=== PATIENT | female | born 1995 | race African-American/Black ===

== ENCOUNTER 2019-12-01 11:14 | Inpatient (IN) | payer MEDICAID, OTHER ==
[2019-12-01 12:33] LABS: BHCG - Serum Negative (NEGATIVE); Pregs Control Background? CLEAR/WHITE (CLR/WHITE); Pregs Control Bar Appear? YES (CONTROL BAR)
[2019-12-01] MEDS ORDERED: Ondansetron PF 4 MG/2 ML Vial ONE (13:05)
[2019-12-01 13:22] LABS: #Basophils 0.1 thou/uL (0.0-0.2); #Lymphocytes 2.6 thou/uL (1.20-3.40); #Monocytes 0.4 thou/uL (0.11-0.59); #Neutrophils 7.9 thou/uL (1.40-6.50); %Basophils 0.7 % (0.0-1.0); %Eosinophils 0.2 % (0.0-10.0); %Lymphocytes 23.9 % (21.0-51.0); %Monocytes 3.4 % (0.0-10.0); %Neutrophils 71.7 % (42.0-75.0); Hemoglobin 14.4 g/dL (12.0-16.0); Mean Corpuscular HGB CONC 34.2 g/dL (32.0-36.0); Mean Corpuscular Hemoglobin 32.8 pg (27.0-31.0); Mean Platelet Volume 8.1 fL (7.4-10.4); Platelet Count 373 thou/uL (130-400); RBC Distribution Width 11.1 % (11.5-14.5); Red Blood Cell (RBC) Count 4.39 mill/uL (4.20-5.40); White Blood Cell (WBC) Count 11.1 thou/uL (4.8-10.8)
[2019-12-01 13:39] LABS: ALT (SGPT) 11 U/L (8-55); AST (SGOT) 17 U/L (5-34); Albumin 4.7 g/dL (3.5-5.0); Alkaline Phosphatase 44 U/L (40-110); Anion Gap 15 mmol/L (10-20); BUN (Urea Nitrogen) 13 mg/dL (7.0-18.7); Bilirubin, Total 0.3 mg/dL (0.2-1.2); Calc. Creatinine Clearance 0 mL/min (70-130); Calcium 9.9 mg/dL (7.8-10.44); Carbon Dioxide 31 mmol/L (22-29); Chloride 94 mmol/L (98-107); Estimated GFR-MDRD Greater than 90; Globulin 2.4 g/dL (2.4-3.5); Glucose 96 mg/dL (70-105); Protein, Total 7.1 g/dL (6.0-8.3); Sodium 137 mmol/L (136-145)
[2019-12-01 13:39] LABS: Acetaminophen Less than 6.0 mcg/mL (10.0-30.0); Alcohol Less than 10 mg/dL (Less than 10); Lipase 93 U/L (8-78); Salicylate Less than 8.0 mg/dL (15.0-30.0)
[2019-12-01 13:53] LABS: Potassium 2.6 mmol/L (3.5-5.1)
[2019-12-01] MEDS ORDERED: Haloperidol Lactate 5 MG/ML VIAL ONE ×2 (13:57→14:29)
[2019-12-01] MEDS ORDERED: diphenhydrAMINE 50 MG/ML VIAL ONE (13:57)
[2019-12-01] MEDS ORDERED: Metoclopramide HCl 10 MG/2 ML VIAL ONE (13:57)
[2019-12-01] MEDS ORDERED: Potassium Chloride 20 MEQ TAB ONE (13:57)
[2019-12-01 14:02] LABS: HIV (1/2) Antibody/Antigen Non-Reactive (NonReactive); HIV 1/2 INDEX 0.12 S/CO (<1.00)
--- NOTE | 2019-12-01 15:13 | PDOC.HHP ---
Hospitalist HPI - History of Present Illness Nausea and Vomiting History of Present Illness: PCP: Dr. Alex The patient is a 24-year-old female with a past medical history significant for cyclical nausea and vomiting and depression that presents to the emergency department for the above complaint. The patient reports having a decreased appetite for the past 1 to 2 months. She reports an approximate 20 to 30 pound weight loss over this time. She reports that she has lost weight and does not eat much because "I am depressed". She saw a unknown specialist in [place] on 11/11, she was diagnosed with cyclical nausea and vomiting. At some point, she underwent an EGD, which she says was unremarkable. She saw [facility] this week and was diagnosed with depression, however, she believes that they are working on another diagnoses as well. She reports that she smokes marijuana, which gives her an increased appetite, makes her gain weight and generally makes her feel better. She last used marijuana about 1 week ago. She also reports that she recently moved in with her mother due to her recent struggles. She denies any SI/HI. She denies any abdominal pain, hematemesis, hematochezia or melena. She denies any shortness of breath, cough, or wheezing. She reports some musculoskeletal chest pain, pointing to her xiphoid bone. She denies any heart palpitations, lower extremity swelling or lightheadedness. She denies any fever or recent illness. ED Course: VITAL SIGNS WedDec 01, 2019 11:16 BERTHA Og Cheryl BP: 84/55, MAP: 78, Pulse: 98, Resp: 18, Temp: 98.9 (Oral), Pain: 8, O2 sat: 100, Time: 12/01/2019 11:16. VITAL SIGNS WedDec 01, 2019 13:15 BERTHA Willett Cory BP: 110/61, MAP: 77, Pulse: 63, Resp: 17, O2 sat: 100 on (Room Air), Time: 12/01/2019 13:15. VITAL SIGNS WedDec 01, 2019 14:23 BERTHA Adair Nicole BP: 112/86, Pulse: 67, Resp: 16, Pain: 8, O2 sat: 100 on (Room Air), Time: 12/01/2019 14:23. Medication administration: Haldol injection 5 mg IV Push Given 14:40 12/01/2019 potassium chloride oral 40 mEq Oral Given 14:28 12/01/2019 diphenhydrAMINE injection 25 mg IV Push Given 14:23 12/01/2019 Reglan injection 10 mg IV Push Given 14:22 12/01/2019 sodium chloride 0.9 % intravenous 1 L IV Fluid Infusion Given 14:21 12/01/2019 Zofran intravenous 8mg mg IV Push Given 13:35 12/01/2019 sodium chloride 0.9 % intravenous 1 L IV Fluid Infusion Given 13:34 12/01/2019 Hospitalist ROS - Review of Systems All other systems reviewed; all pertinent +/- noted in HPI/Subj - Medication Medications: None. 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 Gastrointestinal: reports: no pertinent history Heme/Onc: reports: no pertinent history Hepatobiliary: reports: no pertinent history Psych: reports: Depression, Other (Currently being evaluated by [facility] for other possible diagnoses.) Musculoskeletal: reports: no pertinent history Rheumatologic: reports: no pertinent history Infectious Disease: reports: no pertinent history ENT: reports: no pertinent history Renal/: reports: no pertinent history Endocrine: reports: no pertinent history Dermatology: reports: no pertinent history - Past Surgical History Past Surgical History: reports: no pertinent history - Family History Family History: reports: Other (Contributory for depression) - Social History Smoking Status: Current every day smoker (Quarter pack per day x5 years) Tobacco Type: cigarettes Alcohol: reports: None Drugs: reports: marijuana Occupation: Currently lives with her mother Activity level: independent ambulation - Exam General Appearance: NAD, awake alert. negative: ill appearing General - other findings: Resting comfortably with eyes closed Eye: PERRL, anicteric sclera ENT: normocephalic atraumatic, dry oral mucosa Neck: supple, symmetric Heart: RRR, no murmur, no gallops, no rubs, normal peripheral pulses Respiratory: CTAB, no wheezes, no rales, no ronchi, normal chest expansion Gastrointestinal: soft, non-tender, normal bowel sounds, no guarding, no rigidity Extremities: no cyanosis, no edema Skin: no rashes Neurological: cranial nerve grossly intact, no focal deficits Musculoskeletal: normal tone, normal strength Musculoskeletal - other findings: xiphoid is mild to mod TTP, reproducible Psychiatric: normal affect, A&O x 3 Hospitalist Results - Labs Result Diagrams: 12/01/19 13:00 12/01/19 12:03 Lab results: WBC 11.1 thou/uL (4.8-10.8) H 12/01/19 13:00 Hgb 14.4 g/dL (12.0-16.0) 12/01/19 13:00 Hct 42.2 % (36.0-47.0) 12/01/19 13:00 MCV 96.0 fL (78.0-98.0) 12/01/19 13:00 Plt Count 373 thou/uL (130-400) 12/01/19 13:00 Neutrophils % 71.7 % (42.0-75.0) 12/01/19 13:00 Sodium 137 mmol/L (136-145) 12/01/19 12:03 Potassium 2.6 mmol/L (3.5-5.1) L* 12/01/19 12:03 Chloride 94 mmol/L (98-107) L 12/01/19 12:03 Carbon Dioxide 31 mmol/L (22-29) H 12/01/19 12:03 BUN 13 mg/dL (7.0-18.7) 12/01/19 12:03 Creatinine 0.71 mg/dL (0.6-1.1) 12/01/19 12:03 Glucose 96 mg/dL (70-105) 12/01/19 12:03 Calcium 9.9 mg/dL (7.8-10.44) 12/01/19 12:03 Total Bilirubin 0.3 mg/dL (0.2-1.2) 12/01/19 12:03 AST 17 U/L (5-34) 12/01/19 12:03 ALT 11 U/L (8-55) 12/01/19 12:03 Alkaline Phosphatase 44 U/L (40-110) 12/01/19 12:03 Serum Total Protein 7.1 g/dL (6.0-8.3) 12/01/19 12:03 Albumin 4.7 g/dL (3.5-5.0) 12/01/19 12:03 Lipase 93 U/L (8-78) H 12/01/19 13:00 - EKG Interpretation EKG: EKG normal sinus rhythm with sinus arrhythmia LAE pulse 65 no STEMI Hospitalist H&P A/P - Problem (1) Hypokalemia Code(s): E87.6 - HYPOKALEMIA Status: Acute (2) Nausea and vomiting Code(s): R11.2 - NAUSEA WITH VOMITING, UNSPECIFIED Status: Acute (3) Low TSH level Code(s): R79.89 - OTHER SPECIFIED ABNORMAL FINDINGS OF BLOOD CHEMISTRY Status: Acute (4) Depression Code(s): F32.9 - MAJOR DEPRESSIVE DISORDER, SINGLE EPISODE, UNSPECIFIED Status: Chronic (5) Tobacco abuse Code(s): Z72.0 - TOBACCO USE Status: Chronic (6) Marijuana abuse Code(s): F12.10 - CANNABIS ABUSE, UNCOMPLICATED Status: Chronic - Plan Plan: with PMH cyclical N/V, new diagnosis of depression presents for nausea and vomiting and weight loss. Admit to telemetry floor, inpatient status. Expected length of stay greater than 2 midnights. Presented afebrile, hypotensive, tachycardic, NL RR and SPO2. EKG NSR/SA, no ST elevation. K 2.6, TSH 0.2000, WBC 11.1, UA unremarkable, hCG negative #Hypokalemia Likely due to nausea and vomiting. Presented K 2.6. Given 40 mEq oral in ED. Give 40 mEq IVP x1. Check magnesium level. Recheck levels in a.m. #Nausea and vomiting Resolved upon examination. Recent diagnosis of cyclical N/V. Recent EGD unremarkable. Add scopolamine patch. Zofran PRN. #Low TSH level Presented 0.2000. Check free T4, free T3. At this time, no concern for thyroid storm. #Depression Denies SI/HI. Newly diagnosed this week by [facility]. Reports possible other diagnoses pending. No medication prescriptions at this time due to recent diagnosis. #Tobacco abuse Smokes quarter pack per day x5 years. Unwilling to quit. Counseled tobacco cessation. #Marijuana abuse Last use 1 week ago. Reports helps with her depression, increases her appetite and energy, helps her gain weight. SCDs for DVT prophylaxis. Protonix for GI prophylaxis. Full code. Discussed the case with Dr. Amezquita.
[2019-12-01] MEDS ORDERED: Acetaminophen 325 MG TAB PO PRN (15:47)
[2019-12-01] MEDS ORDERED: Calcium Carbonate 500 MG ChewTAB PO PRN (15:47)
[2019-12-01] MEDS ORDERED: Ondansetron PF 4 MG/2 ML Vial IVP PRN (15:47)
[2019-12-01] MEDS ORDERED: Senokot S 8.6-50 MG TAB PO PRN (15:47)
[2019-12-01] MEDS ORDERED: Ondansetron ODT 4 MG TAB PO PRN (15:47)
[2019-12-01 15:59] LABS: Bacteria/HPF None Seen HPF (None Seen); Bilirubin Negative (Negative); Blood, Urine Negative (Negative); Clarity Turbid (Clear); Glucose, Urine (Dipstick) Normal (Negative); Ketone, Urine 10 mg/dL (Negative); Leukocyte 500 Leu/uL (Negative); Nitrite Negative (Negative); Protein, Urine (Dipstick) 20 mg/dL (Neg-Trace); Specific Gravity, Urine 1.015 (1.002-1.036); Squamous Epithelial 0-3 HPF (0-3); WBC/HPF 21-50 HPF (0-3)
[2019-12-01 16:14] LABS: Amphetamine Not Detected (NotDetected); Barbiturates Screen Not Detected (NotDetected); Benzodiazepine Screen Not Detected (NotDetected); Cocaine Metabolite Screen Not Detected (NotDetected); Medtox Control Line Valid? VALID (VALID); Medtox Reader # READER 4; Methadone Not Detected (NotDetected); Methamphetamine Not Detected (NotDetected); Opiate Screen Not Detected (NotDetected); Oxycodone Screen Not Detected (NotDetected); Phencyclidine (PCP) Not Detected (NotDetected); THC/Cannabinoid Screen Detected (NotDetected); Tricyclic Screen Not Detected (NotDetected)
[2019-12-01] MEDS ORDERED: FLU VACC QS2020-21(6MOS UP)/PF 60 MCG/0.5 ML SYRINGE IM ONE (17:45)
[2019-12-01] MEDS ORDERED: Morphine 4 MG/ML VIAL SLOW IVP PRN (18:00)
[2019-12-01] MEDS ORDERED: cefTRIAXone\\ROCEPHIN 1 GM in Sodium Chloride 0.9% 100 ML IVPB SCH (18:00)
[2019-12-01] MEDS ORDERED: Scopolamine 1.5 mg/72 hour Patch TD SCH (18:00)
[2019-12-01] MEDS ORDERED: Potassium Chloride 40 MEQ in Sodium Chloride 0.9% 250 ML 250 ML IVPB SCH (18:00)
[2019-12-01] MEDS: Sodium Chloride 0.9% 1,000 ML IV SCH (18:12)
[2019-12-01] MEDS ORDERED: Magnesium 2 GM/50 ML 2 GM in Premix Bag 1 BAG IVPB SCH (20:00)
[2019-12-02] MEDS: Sodium Chloride 0.9% 1,000 ML IV SCH ×2 (04:13→07:56)
[2019-12-02] MEDS ORDERED: Fentanyl 100 MCG/2 ML VIAL SLOW IVP SCH (06:45)
[2019-12-02 06:48] LABS: Anion Gap 10 mmol/L (10-20); BUN (Urea Nitrogen) 8 mg/dL (7.0-18.7); Calc. Creatinine Clearance 93 mL/min (70-130); Carbon Dioxide 24 mmol/L (22-29); Chloride 106 mmol/L (98-107); Estimated GFR-MDRD Greater than 90; Glucose 95 mg/dL (70-105); Potassium 3.4 mmol/L (3.5-5.1); Sodium 137 mmol/L (136-145)
[2019-12-02 07:02] LABS: #Basophils 0.1 thou/uL (0.0-0.2); #Eosinphils 0.1 thou/uL (0.0-0.7); #Lymphocytes 4.3 thou/uL (1.20-3.40); #Monocytes 0.3 thou/uL (0.11-0.59); #Neutrophils 4.4 thou/uL (1.40-6.50); %Basophils 0.7 % (0.0-1.0); %Eosinophils 1.1 % (0.0-10.0); %Lymphocytes 46.6 % (21.0-51.0); %Monocytes 3.4 % (0.0-10.0); %Neutrophils 48.2 % (42.0-75.0); Hemoglobin 11.6 g/dL (12.0-16.0); Mean Corpuscular HGB CONC 34.4 g/dL (32.0-36.0); Mean Corpuscular Hemoglobin 33.2 pg (27.0-31.0); Mean Corpuscular Volume 96.4 fL (78.0-98.0); Mean Platelet Volume 8.1 fL (7.4-10.4); Platelet Count 303 thou/uL (130-400); RBC Distribution Width 11.2 % (11.5-14.5); White Blood Cell (WBC) Count 9.1 thou/uL (4.8-10.8)
[2019-12-02 07:04] LABS: Free T4 (Free Thyroxine) 1.38 ng/dL (0.70-1.48)
[2019-12-02] MEDS ORDERED: Pantoprazole 40 MG VIAL IVP SCH (09:00)
[2019-12-02] MEDS ORDERED: Nicotine 21 MG PATCH TD SCH (12:00)
[2019-12-02 12:25] VITALS: BMI 18.3
--- NOTE | 2019-12-02 15:21 | DIS ---
DATE OF ADMISSION: 12/01/2019 DATE OF DISCHARGE: 12/02/2019 PRIMARY CARE PROVIDER: At [facility]. DISCHARGE DIAGNOSES: 1. Cyclical nausea and vomiting. 2. Hypokalemia. 3. Histories of depression. 4. Tobacco abuse. 5. Histories of marijuana use. CONSULTATIONS: None. PROCEDURE PERFORMED: None. LABORATORY DATA AND IMAGING STUDY: WBC 9.1, hemoglobin 11.6, hematocrit 33.7, and platelets 303. Sodium is 137, potassium 3.4, carbon dioxide 24, chloride is 106, BUN 10, creatinine 0.65. TSH level 0.2, free T3 2.36, free T4 1.36, folate 3.3, vitamin B12. UA is positive for leukocyte esterase. Urine tox screen, positive for cannabinoids. HIV screen was nonreactive. HISTORY OF PRESENT ILLNESS AND BRIEF HOSPITAL COURSE: The patient is a pleasant 20 years old female who carried the diagnosis of cyclical nausea and vomiting and depression, who presented to the ED with complaint of nausea and vomiting. The patient apparently underwent an extensive workup including EGD, all came back none revealing. She was diagnosed with cyclical nausea and vomiting. At any rate, she was found to have multiple electrolyte abnormalities including hypokalemia with potassium of 2.6 on admission. Given her symptomatology, she was subsequently admitted to Hospitalist Service for IV fluid hydration and correct her underlying metabolic derangement due to her nausea and vomiting. She was hydrated well. Her diet was restarted. She has tolerated well and keep things down. She denies any abdominal pain. She also found to have low TSH level; however, her free T3 and free T4 were normal. She likely has an underlying subclinical hypothyroidism. We would recommend her to follow up with her PCP in 4 to 6 weeks to recheck her TSH level. She is otherwise asymptomatic from it. She also found to have urinary tract infection, was treated apparently with Rocephin. At this point, the patient stated that her symptoms completely resolved. She is tolerating diet, and she requests to be discharged home. It should be noted that the patient admitted for inpatient with anticipation of stay longer than 2 midnights; however, her symptom responded well to the medical therapy faster than anticipated. The patient will be discharged to home with percy Fields. She also discharged home with 5 more days of Macrobid for her urinary tract infection. She was advised to follow up with her PCP in 1 to 2 weeks. Return to the ED if her symptoms recurs or worsen. DISPOSITION: The patient is stable to discharge home. ACTIVITY: As tolerated. DIET: Regular. FOLLOWUP CARE: The patient to follow up with her PCP in 1 to 2 weeks. She will need to repeat her thyroid function test in about 4 to 6 weeks. PHYSICAL EXAMINATION: VITAL SIGNS: Temperature is 98.4, respiratory rate 15, pulse is 70, blood pressure 110/66. GENERAL: The patient is a thin, not in acute distress. HEENT: Normocephalic, atraumatic. Mucous membranes moist. NECK: Supple. No lymphadenopathy. No JVD. CARDIOVASCULAR: Regular rate and rhythm. S1, S2 noted. No murmur. PULMONOLOGY: Clear to auscultation bilaterally. ABDOMEN: Soft, nontender, nondistended. Positive bowel sounds. MUSCULOSKELETAL: No joint pain or tenderness. No lower extremity edema. SKIN: Intact. NEUROLOGIC: Cranial nerves 2 through 12 grossly intact. No focal weakness. PSYCHIATRIC: The patient is alert and oriented x3 with normal affect. The patient denies any suicidal or homicidal ideation. DISCHARGE MEDICATIONS: 1. Zofran 4 mg q.6 p.r.n. for nausea. 2. Macrobid 100 mg b.i.d. for 5 days. Thank you for allowing us to participate in this patient's care. Discharge time spent, 35 minutes. Job ID: [id number] MTDD
[2019-12-02 15:25] LABS: SARS-CoV-2 MS2 Positive; SARS-CoV-2 N Gene Negative; SARS-CoV-2 S Gene Negative; SARS-CoV-2 by NAA Not Detected (NotDetected); SARS-CoV-2 orf1ab Negative
[2019-12-02 16:18] VITALS: BP 108/68; TEMP 98.2
--- NOTE | 2019-12-05 03:39 | PQF ---
Dear : Aron Barksdale Date 12/05/19 Please exercise your independent, professional judgment in responding to the clarification form. Clinical indicators are provided on the bottom of this form for your review Can you please further clarify the nutritional status of the patient? Please check appropriate box(es): [ X ] Protein Calorie Malnutrition: [ ] Mild [ X ] Moderate [ ] Severe [ ] Other Malnutrition (please specify) [ ] Underweight without malnutrition [ ] Cachexia [ ] Other diagnosis [ ] Unable to determine Physician Signature: Date/Time: For continuity of documentation, please document condition throughout progress notes and discharge summary. Thank You. To be completed by CDI/Coding staff for physician review: Present Clinical Indicators - Signs / Symptoms / Labs Results and Location in Medical Record [ x ] BMI 17.6 Nutritional assessment 12/01 [ x ] Noted moderate temporalis muscle, moderate buccal, and orbital fat pad wasting Nutritional assessment 12/01 [ x ] Suggestive of severe malnutrition in the context of chronic illness Nutritional assessment 12/01 [ x ] Poor appetite Nutritional assessment 12/01 [ x ] 34+ pounds weight loss Nutritional assessment 12/01 [ x ] History of cyclical nausea and vomiting H and P pg.1 [ x ] Presents for nausea and vomiting and weight loss H and P pg.5 Present Risk Factors Results and Location in Medical Record [ x ] Depression H and P pg.1 [ x ] Smoker H and P pg. 2 [ x ] Marijuana abuse H and P pg.4 [ x ] hypokalemia H and P pg.5 [ x ] Subclinical hypothyroidism DS pg.2 [ x ] UTI DS pg.2 Present Treatments Results and Location in Medical Record [ x ] Dietary consult Nutritional assessment 12/01 [ x ] Nutritional supplements Nutritional assessment 12/01 [ x ] IV Fluids MAR [ x ] Monitor weight change Nutritional assessment 12/01 [ x ] Monitor Total protein intake Nutritional assessment 12/01 CDS/Biomass Plant Technician Signature: Emmett Vázquez Phone #: ext [phone] Date 12/05/19 Moderate Malnutrition (in acute illness) ? Energy Intake: <75% of estimated energy requirement for > 7 days ? Weight Loss: 1-2%/1 week; 5%/ 1 month; 7.5%/3 months ? Other: mild body fat loss; mild muscle mass loss; mild fluid accumulation; Severe Malnutrition (in acute illness) ? Energy Intake: ? 50% of estimated energy requirement for ? 5 days ? Weight Loss: >2%/1 week; >5%/1 month; >7.5%/3 months ? Other: moderate body fat loss; moderate muscle mass loss; moderate- severe fluid accumulation; measurably reduced tool pusher strength Moderate Malnutrition (in chronic illness) ? Energy Intake: <75% of estimated energy requirement for ?1 month ? Weight Loss: 5%/1 month; 7.5%/3 months; 10%/6 months; 20%/1 year ? Other: mild body fat loss; mild muscle mass loss; mild fluid accumulation Severe Malnutrition (in chronic illness) ? Energy Intake: ?75% of estimated energy requirement for ?1 month ? Weight Loss: >5%/1 month; >7.5%/3 months; >10%/6 months; >20%/1 year ? Other: severe body fat loss; severe muscle mass loss; severe fluid accumulation; measurably reduced tool pusher strength This is a permanent part of the Medical Record MTDD
== END 2019-12-02 16:25 | disposition home or self-care (01) | DRG 394 ==
LOC: ERS 11:14 → 2NO 16:54
PROVIDERS: ADMIT Internal Medicine; ATTEND Internal Medicine
DX: R11.15 Cyclical vomiting syndrome unrelated to migraine (principal); N39.0 Urinary tract infection, site not specified; Z68.1 Body mass index [BMI] 19.9 or less, adult; E44.0 Moderate protein-calorie malnutrition; E87.6 Hypokalemia; E78.5 Hyperlipidemia, unspecified; F17.210 Nicotine dependence, cigarettes, uncomplicated; F12.10 Cannabis abuse, uncomplicated; F31.9 Bipolar disorder, unspecified; F41.9 Anxiety disorder, unspecified; E86.0 Dehydration; E02 Subclinical iodine-deficiency hypothyroidism; Z20.828 Contact with and (suspected) exposure to other viral communicable diseases
CPT/HCPCS: 36415; 36416; 80048; 80053; 80306; 80307; 81001; 82607; 82746; 83690; 83735; 84439; 84443; 84481; 84703; 85025; 87086; 87389; 87635; 93005; 96365; 96375; C9113; J0696; J1200; J1630; J2270; J2405; J2765; J3010; J3475; J3480; J3490; J7050; U0003

== ENCOUNTER 2020-04-01 11:44 | Inpatient (IN) | payer MEDICAID, SELFPAY ==
[2020-04-01 13:46] LABS: #Basophils 0.1 thou/uL (0.0-0.2); #Lymphocytes 4.2 thou/uL (1.20-3.40); #Monocytes 0.8 thou/uL (0.11-0.59); #Neutrophils 14.2 thou/uL (1.40-6.50); %Basophils 0.5 % (0.0-1.0); %Lymphocytes 21.9 % (21.0-51.0); %Monocytes 4.1 % (0.0-10.0); %Neutrophils 73.4 % (42.0-75.0); Hemoglobin 15.9 g/dL (12.0-16.0); Mean Corpuscular HGB CONC 34.3 g/dL (32.0-36.0); Mean Corpuscular Hemoglobin 33.7 pg (27.0-31.0); Mean Corpuscular Volume 98.3 fL (78.0-98.0); Mean Platelet Volume 7.8 fL (7.4-10.4); Platelet Count 429 thou/uL (130-400); RBC Distribution Width 11.4 % (11.5-14.5); Red Blood Cell (RBC) Count 4.72 mill/uL (4.20-5.40); White Blood Cell (WBC) Count 19.3 thou/uL (4.8-10.8)
[2020-04-01 13:54] LABS: BHCG - Serum Negative (NEGATIVE); Pregs Control Background? CLEAR/WHITE (CLR/WHITE); Pregs Control Bar Appear? YES (CONTROL BAR)
[2020-04-01 14:06] LABS: ALT (SGPT) 14 U/L (8-55); AST (SGOT) 18 U/L (5-34); Albumin 5.5 g/dL (3.5-5.0); Alkaline Phosphatase 62 U/L (40-110); Anion Gap 23 mmol/L (10-20); BUN (Urea Nitrogen) 27 mg/dL (7.0-18.7); Bilirubin, Total 0.3 mg/dL (0.2-1.2); Calc. Creatinine Clearance 0 mL/min (70-130); Calcium 10.9 mg/dL (7.8-10.44); Carbon Dioxide 21 mmol/L (22-29); Chloride 90 mmol/L (98-107); Globulin 3.5 g/dL (2.4-3.5); Glucose 112 mg/dL (70-105); Lipase 39 U/L (8-78); Potassium 3.2 mmol/L (3.5-5.1); Sodium 131 mmol/L (136-145)
[2020-04-01] MEDS ORDERED: Ondansetron PF 4 MG/2 ML Vial ONE (15:02)
[2020-04-01] MEDS ORDERED: Morphine 4 MG/ML VIAL ONE (15:02)
[2020-04-01] MEDS ORDERED: Acetaminophen 650 MG Suppository PR PRN (15:40)
--- NOTE | 2020-04-01 16:03 | PDOC.HHP ---
Hospitalist HPI Intractable N/V History of Present Illness: Ms. Contreras is a 24-year-old female with past medical history of bipolar disorder, chronic intractable nausea vomiting, weight loss and failure to thrive who presents emergency room for intractable nausea and vomiting. Patient reports that over the past year she has had chronic nausea vomiting and has been unable to keep anything down. Last year patient weighed 135 pounds, she is currently about 80 pounds. She reports she has an appetite but is unable to keep any food down. She endorses global pain and generalized weakness. She denies chest pain, shortness of breath or abdominal pain. Does state that she has had periods of numbness at the ends of her fingertips that are transient as well as muscle cramps. She reports that a similar event happened in 2013 where she lost a significant amount of weight and was unable to tolerate anything p.o. She said that this is when she is going through a stressful time in her life, but that a few months afterwards this improved and she had no problems until 1 year ago. Patient does smoke marijuana and possibility of cannabis hyperemesis syndrome has been brought to patient. She has attempted to quit and has not found relief in her symptoms. She was sent in from Dr. Brito's office for electrolyte abnormalities and an acute kidney injury. She reports that over the past week she has been unable to keep anything down. She takes daily vitamins and daily potassium pills. She was [facility] in [place], however did not follow-up with this appointment. She has been admitted multiple times in the past for intractable nausea and vomiting. She has had a thorough work-up including an EGD which was negative. Records show that in 2013 she did have a gastroparesis study done which was negative. Patient cachectic on exam with lanugo and signs of severe malnutrition. Emergency room initial vital signs 139/116, 112, 18, 97.5 BUN/CR 27/2.29, sodium 131, potassium 3.2, calcium 10.9. Beta hCG negative. Lipase 69. H&H 15.9/46.3. WBC 19.3, platelets 429. Of note patient had a recent CT abdomen pelvis on February 26 which showed constipation and no acute process. Patient is hospital service for treatment of her LUIS and severe malnutrition. Allergies/Adverse Reactions: Allergy/AdvReac Type Severity Reaction Status Date / Time No Known Drug Allergies Allergy Verified 09/15/13 02:04 Home Medications: Medication Instructions Recorded Confirmed Type Ondansetron HCl [Zofran] 4 mg PO Q6HR PRN #30 tab 12/02/19 04/01/20 Rx Gabapentin [Neurontin] 100 mg PO TID 04/01/20 04/01/20 History Multivitamin [One-A-Day Essential] 1 tab PO DAILY 04/01/20 04/01/20 History Omeprazole 40 mg PO DAILY 04/01/20 04/01/20 History Potassium Gluconate [Potassium] 99 mg PO DAILY 04/01/20 04/01/20 History Promethazine [Phenergan] 25 mg PO TID PRN 04/01/20 04/01/20 History Ziprasidone HCl 20 mg PO BID 04/01/20 04/01/20 History Past History: PMHx: Cyclic nausea/vomiting syndrome PSHx: Tonsillectomy FHx: Denies family history of metabolic disorders, celiac disease, IBS IBD or cancers Social: Lives at home with family. Endorses marijuana use and tobacco use, denies alcohol use. Hospitalist HPI ROS Constitutional: reports: weakness, malaise. denies: fever, chills, sweats, other Eyes: denies: pain, vision change, conjunctivae inflammation, eyelid inflammation, redness, other ENT: denies: ear pain, ear discharge, nose pain, nose discharge, nose congestion, mouth pain, mouth swelling, throat pain, throat swelling, other Respiratory: denies: cough, dry, shortness of breath, hemoptysis, SOB with excertion, pleuritic pain, sputum, wheezing, other Cardiovascular: denies: chest pain, palpitations, orthopnea, paroxysmal noc. dyspnea, edema, light headedness, other Gastrointestinal: reports: nausea, vomiting. denies: abdominal pain, diarrhea, constipation, melena, hematochezia, other Genitourinary: denies: dysuria, frequency, incontinence, hematuria, retention, other Musculoskeletal: denies: neck pain, shoulder pain, arm pain, back pain, hand pain, leg pain, foot pain, other Skin: denies: rash, lesions, shannan, bruising, other Neurological: denies: weakness, numbness, incoordination, change in speech, confusion, seizures, other Hospitalist Exam General Appearance: NAD, awake alert, ill appearing General - other findings: Cachectic with lanugo Eye: PERRL, anicteric sclera ENT: normocephalic atraumatic, no oropharyngeal lesions, moist mucosa Neck: supple, symmetric, no JVD, no thyromegaly, no lymphadenopathy, no carotid bruit Heart: RRR, no murmur, no gallops, no rubs, normal peripheral pulses Respiratory: CTAB, no wheezes, no rales, no ronchi, normal chest expansion, no tachypnea, normal percussion Gastrointestinal: soft, non-tender, non-distended, normal bowel sounds, no palpable masses, no hepatomegaly, no splenomegaly, no bruit Extremities: no cyanosis, no clubbing, no edema Skin: tenting Neurological: cranial nerve grossly intact, normal sensation to touch, no weakness, no focal deficits, no new deficit Musculoskeletal: normal tone, normal strength, generalized weakness, diffuse muscle atrophy Psychiatric: normal affect, normal behavior, A&O x 3 Hospitalist Results Result Diagrams: 04/02/20 09:28 04/02/20 08:29 Lab results: Laboratory Last Values WBC 19.3 thou/uL (4.8-10.8) H 04/01/20 13:33 RBC 4.72 mill/uL (4.20-5.40) 04/01/20 13:33 Hgb 15.9 g/dL (12.0-16.0) 04/01/20 13:33 Hct 46.3 % (36.0-47.0) 04/01/20 13:33 MCV 98.3 fL (78.0-98.0) H 04/01/20 13:33 MCH 33.7 pg (27.0-31.0) H 04/01/20 13:33 MCHC 34.3 g/dL (32.0-36.0) 04/01/20 13:33 RDW 11.4 % (11.5-14.5) L 04/01/20 13:33 Plt Count 429 thou/uL (130-400) H 04/01/20 13:33 MPV 7.8 fL (7.4-10.4) 04/01/20 13:33 Neutrophils % 73.4 % (42.0-75.0) 04/01/20 13:33 Lymphocytes % 21.9 % (21.0-51.0) 04/01/20 13:33 Monocytes % 4.1 % (0.0-10.0) 04/01/20 13:33 Eosinophils % 0.0 % (0.0-10.0) 04/01/20 13:33 Basophils % 0.5 % (0.0-1.0) 04/01/20 13:33 Neutrophils # 14.2 thou/uL (1.40-6.50) H 04/01/20 13:33 Lymphocytes # 4.2 thou/uL (1.20-3.40) H 04/01/20 13:33 Monocytes # 0.8 thou/uL (0.11-0.59) H 04/01/20 13:33 Eosinophils # 0.0 thou/uL (0.0-0.7) 04/01/20 13:33 Basophils # 0.1 thou/uL (0.0-0.2) 04/01/20 13:33 Sodium 131 mmol/L (136-145) L 04/01/20 13:33 Potassium 3.2 mmol/L (3.5-5.1) L 04/01/20 13:33 Chloride 90 mmol/L (98-107) L 04/01/20 13:33 Carbon Dioxide 21 mmol/L (22-29) L 04/01/20 13:33 Anion Gap 23 mmol/L (10-20) H 04/01/20 13:33 BUN 27 mg/dL (7.0-18.7) H 04/01/20 13:33 Creatinine 2.29 mg/dL (0.6-1.1) H 04/01/20 13:33 Estimated GFR (MDRD) 31 04/01/20 13:33 Glucose 112 mg/dL (70-105) H 04/01/20 13:33 Calcium 10.9 mg/dL (7.8-10.44) H 04/01/20 13:33 Total Bilirubin 0.3 mg/dL (0.2-1.2) 04/01/20 13:33 AST 18 U/L (5-34) 04/01/20 13:33 ALT 14 U/L (8-55) 04/01/20 13:33 Alkaline Phosphatase 62 U/L (40-110) 04/01/20 13:33 Serum Total Protein 9.0 g/dL (6.0-8.3) H 04/01/20 13:33 Albumin 5.5 g/dL (3.5-5.0) H 04/01/20 13:33 Globulin 3.5 g/dL (2.4-3.5) 04/01/20 13:33 Albumin/Globulin Ratio 1.6 g/dL (1.2-2.2) 04/01/20 13:33 Lipase 39 U/L (8-78) 04/01/20 13:33 Serum , Qual Negative (NEGATIVE) 04/01/20 13:33 Hospitalist H&P A/P Plan: 24-year-old female with past medical history of bipolar disorder presents with chronic nausea and vomiting, significant 60 pound weight loss in the past year presents with intractable nausea, severe malnutrition, acute kidney injury, several electrolyte abnormalities and overall failure to thrive picture. Intractable nausea and vomiting Patient with intractable nausea and vomiting. Unable to tolerate nothing p.o. was sent in from Dr. Brito's office for LUIS noted on labs. This is a chronic problem for the patient and she has been following with GI and was supposed to see specialist in [place], however never made of follow-up appointment. There is question of marijuana hyperemesis syndrome, however patient reports that she has tried quitting and this is not helped her symptoms. Impressed upon patient the need to quit marijuana to exclude this diagnosis. Patient received Zofran and metoclopramide in emergency room. She has improvement in her nausea symptoms but unable to keep down liquids or solids. Suspect patient may have metabolic disorder given chronicity of symptoms and severity of patient's malnutrition. Will work-up patient for other less obvious causes of intractable nausea and vomiting. Plan IV Zofran Scopolamine patch GI consult Acute kidney injury Patient with LUIS BUNs/CR 27/2.29. Likely secondary to hypovolemia secondary to GI losses. Will start IV fluids and consult nephrology given patient's young age. Plan Trend kidney function IV fluids Avoid nephrotoxic agents when possible Renal dosing as appropriate Nephrology consult Hypercalcemia Patient hypercalcemic with calcium 10.6. Patient's protein level is actually high likely 2/2 dehydration. Given patient's elevated elevated calcium level, will send for SPEP/UPEP especially given patient's global pain and significant weight loss. We will also check parathyroid hormone and vitamin D levels. Plan IV fluids to bring calcium down SPEP/UPEP, vitamin D Hypokalemia Hypokalemic to 3.2. Secondary to GI losses. Will replete and continue to monitor Hyponatremia Sodium 131. Likely hypovolemic hyponatremia secondary to dehydration and GI losses. Will check urine sodium, urine osm, serum osm. Anion gap metabolic acidosis Patient with anion gap metabolic acidosis likely secondary to starvation ketosis. Will administer IV fluids continue to monitor. Failure to thrive Patient with failure to thrive picture. Had significant weight loss in the past year and has cachexia on exam with lanugo. Patient has tried multiple nutrition supplements in the past and is unable to keep on any weight or keep any food down. Suspect patient may have underlying metabolic disorder. Will obtain nutrition consult. Plan Nutrition consult recommendations appreciated Anxiety and depression History of anxiety and depression. We will continue home medications. Patient reports she is stable, and feels as though her medical problems are the main cause of her anxiety and depression and that she did not have issues with anxiety or depression prior to developing these medical issues. DVT prophylaxisSCDs Full code Case discussed with attending physician, Dr. Aguilar
[2020-04-01 16:50] LABS: Hemoglobin A1c 5.3 % (4.0-6.0)
[2020-04-01 17:06] LABS: Syphilis Antibody Nonreactive (Nonreactive); Syphilis Antibody Index 0.03 S/CO (<1.00 Non-Reactive)
[2020-04-01 17:08] LABS: HIV (1/2) Antibody/Antigen Non-Reactive (NonReactive); HIV 1/2 INDEX 0.09 S/CO (<1.00)
[2020-04-01 17:24] LABS: Bacteria/HPF None Seen HPF (None Seen); Bilirubin Negative (Negative); Blood, Urine Negative (Negative); Clarity Turbid (Clear); Glucose, Urine (Dipstick) Normal (Negative); Ketone, Urine 10 mg/dL (Negative); Leukocyte 75 Leu/uL (Negative); Nitrite Negative (Negative); Protein, Urine (Dipstick) 100 mg/dL (Neg-Trace); RBC/HPF 0-3 HPF (0-3); Specific Gravity, Urine 1.026 (1.002-1.036); pH, Urine 5.5 (5.0-9.0)
[2020-04-01] MEDS: Potassium Chloride 20 MEQ in Lactated Ringer's 1,000 ML IV SCH (18:20)
[2020-04-01] MEDS: Scopolamine 1.5 mg/72 hour Patch TD SCH (18:21)
[2020-04-01 19:00] VITALS: BMI 15.0
[2020-04-01 20:04] LABS: Anion Gap 19 mmol/L (10-20); BUN (Urea Nitrogen) 26 mg/dL (7.0-18.7); Calc. Creatinine Clearance 38 mL/min (70-130); Calcium 9.9 mg/dL (7.8-10.44); Carbon Dioxide 25 mmol/L (22-29); Chloride 94 mmol/L (98-107); Glucose 93 mg/dL (70-105); Potassium 3.6 mmol/L (3.5-5.1); Sodium 134 mmol/L (136-145)
[2020-04-01] MEDS: cefTRIAXone\\ROCEPHIN 1 GM in Sodium Chloride 0.9% 100 ML IVPB SCH (20:27)
[2020-04-01] MEDS ORDERED: Nicotine 7 MG PATCH TOP SCH (20:30)
[2020-04-01] MEDS: Nicotine 7 MG PATCH TOP SCH (20:31)
[2020-04-01] MEDS: Gabapentin 100 MG CAP PO SCH ×2 (20:31→21:02)
[2020-04-01] MEDS: Ziprasidone 20 MG CAP PO SCH ×2 (20:37→21:03)
[2020-04-01] MEDS ORDERED: Lidocaine 2% Viscous Solution 10 ML, Aluminum & Magnesium Hydroxide 30 ML SSW SCH (23:00)
[2020-04-01] MEDS: Acetaminophen 325 MG TAB PO PRN (23:11)
[2020-04-01 23:17] LABS: Amphetamine Not Detected (NotDetected); Barbiturates Screen Not Detected (NotDetected); Benzodiazepine Screen Not Detected (NotDetected); Cocaine Metabolite Screen Not Detected (NotDetected); Medtox Control Line Valid? VALID (VALID); Medtox Reader # READER 4; Methadone Not Detected (NotDetected); Methamphetamine Not Detected (NotDetected); Opiate Screen Detected (NotDetected); Oxycodone Screen Not Detected (NotDetected); Phencyclidine (PCP) Not Detected (NotDetected); Potassium, Urine 47.4 mmol/L; Sodium, Urine Less than 20 mmol/L (Not Available); THC/Cannabinoid Screen Detected (NotDetected); Tricyclic Screen Not Detected (NotDetected)
[2020-04-02] MEDS: Ondansetron ODT 4 MG TAB PO PRN ×2 (00:40→05:41)
[2020-04-02] MEDS ORDERED: Morphine 4 MG/ML VIAL SLOW IVP SCH (01:30)
[2020-04-02] MEDS: Potassium Chloride 20 MEQ in Lactated Ringer's 1,000 ML IV SCH ×2 (01:31→09:20)
[2020-04-02 01:49] LABS: #Basophils 0.1 thou/uL (0.0-0.2); #Eosinphils 0.1 thou/uL (0.0-0.7); #Lymphocytes 4.9 thou/uL (1.20-3.40); #Monocytes 0.6 thou/uL (0.11-0.59); #Neutrophils 9.5 thou/uL (1.40-6.50); %Basophils 0.6 % (0.0-1.0); %Eosinophils 0.5 % (0.0-10.0); %Lymphocytes 32.2 % (21.0-51.0); %Monocytes 3.7 % (0.0-10.0); %Neutrophils 62.9 % (42.0-75.0); Hemoglobin 14.2 g/dL (12.0-16.0); Mean Corpuscular HGB CONC 34.9 g/dL (32.0-36.0); Mean Corpuscular Hemoglobin 33.5 pg (27.0-31.0); Mean Corpuscular Volume 96.1 fL (78.0-98.0); Platelet Count 390 thou/uL (130-400); RBC Distribution Width 11.3 % (11.5-14.5); Red Blood Cell (RBC) Count 4.22 mill/uL (4.20-5.40)
[2020-04-02 02:06] LABS: Lactic Acid 2.2 mmol/L (0.5-2.2)
[2020-04-02 02:12] LABS: ALT (SGPT) 11 U/L (8-55); AST (SGOT) 15 U/L (5-34); Albumin 4.9 g/dL (3.5-5.0); Alkaline Phosphatase 50 U/L (40-110); Anion Gap 17 mmol/L (10-20); BUN (Urea Nitrogen) 26 mg/dL (7.0-18.7); Bilirubin, Total 0.3 mg/dL (0.2-1.2); Calc. Creatinine Clearance 43 mL/min (70-130); Calcium 9.9 mg/dL (7.8-10.44); Carbon Dioxide 24 mmol/L (22-29); Chloride 96 mmol/L (98-107); Glucose 143 mg/dL (70-105); Lipase 31 U/L (8-78); Protein, Total 7.9 g/dL (6.0-8.3); Sodium 134 mmol/L (136-145)
[2020-04-02] MEDS: Potassium Chloride 20 MEQ in Premix Bag 1 BAG IVPB SCH ×2 (03:04→10:49)
[2020-04-02] MEDS ORDERED: Melatonin 3 MG TAB PO SCH (04:45)
[2020-04-02] MEDS ORDERED: Calcium Carbonate 500 MG ChewTAB PO PRN (06:17)
--- NOTE | 2020-04-02 07:44 | CT ---
PRELIMINARY REPORT/[facility]/EMERGENCY AFTER HOURS PROCEDURE: EXAM: CT Abdomen and Pelvis Without Intravenous Contrast CLINICAL HISTORY: F25, SEVERE ABDOMEN PAIN. TECHNIQUE: Axial computed tomography images of the abdomen and pelvis without intravenous contrast. CONTRAST: None. COMPARISON: None provided. FINDINGS: LUNG BASES: No basilar airspace consolidation or pleural effusion. LIVER: Unremarkable. GALLBLADDER AND BILE DUCTS: Unremarkable. No calcified stone. No ductal dilation. PANCREAS: Unremarkable. SPLEEN: Unremarkable. ADRENAL GLANDS: Unremarkable. KIDNEYS, URETERS, AND BLADDER: Multiple nonobstructing right renal calculi. STOMACH AND BOWEL: Moderate volume of formed stool throughout the colon raising the possibility of so me degree of constipation. APPENDIX: No CT evidence for appendicitis. PERITONEUM: No free fluid. No free air. REPRODUCTIVE: Unremarkable as visualized. VASCULATURE: No aortic aneurysm. ABDOMINAL WALL AND SOFT TISSUES: Unremarkable. BONES: No fracture or suspicious osseous abnormality. IMPRESSION: 1. Multiple nonobstructing right renal calculi. 2. Moderate volume of formed stool throughout the colon raising the possibility of some degree of con stipation. ELECTRONICALLY SIGNED BY: John Jerry MD Apr 02, 2020 2:24:17 AM [employer] FINAL REPORT ABDOMEN CT WITHOUT CONTRAST PELVIC CT WITHOUT CONTRAST: HISTORY: Abdominal pain, severe. COMPARISON: None. FINDINGS: Abdomen CT: Lung bases:Clear. Heart size: Normal heart size. No significant pericardial fluid. Aorta: Normal caliber. No periaortic fat stranding. Solid organs: Limited evaluation by the absence of IV contrast. Grossly no solid organ abnormality. Lymph nodes: No gastrohepatic, retrocrural or periportal lymphadenopathy. Gallbladder: Grossly unremarkable. Mesentery: No mass, lymphadenopathy, free air or free fluid. Kidneys: Punctate nonobstructing 1-2 mm calculi in the right renal pelvis. Bilaterally no obstructive uropathy. Alimentary canal: Limited evaluation by the lack of oral contrast. Moderate fecal material. Correlate for constipation. No evidence of a small bowel obstruction. Limited evaluation of the ileocecal junction. Partially visualized normal caliber appendix. CT PELVIS: No mass, adenopathy, free air or free fluid. Grossly unremarkable reproductive organs Urinary bladder: Unremarkable. Osseous structures: No lytic or blastic lesions IMPRESSION: 1. This report is in agreement with initial report by [facility]. 2. Moderate fecal material. Correlate for constipation. 3. Nonobstructing intrarenal calculi in the right renal pelvis. Transcribed Date/Time: 04/02/2020 8:12 AM
[2020-04-02] MEDS: Ziprasidone 20 MG CAP PO SCH ×2 (07:54→20:41)
[2020-04-02] MEDS: Gabapentin 100 MG CAP PO SCH ×3 (07:54→20:40)
[2020-04-02] MEDS ORDERED: Bisacodyl 5 MG TAB PO PRN (08:08)
[2020-04-02] MEDS ORDERED: Thiamine HCl 200 MG/2 ML VIAL SLOW IVP SCH (09:00)
[2020-04-02 09:11] LABS: Anion Gap 16 mmol/L (10-20); BUN (Urea Nitrogen) 24 mg/dL (7.0-18.7); Calc. Creatinine Clearance 52 mL/min (70-130); Calcium 10.1 mg/dL (7.8-10.44); Carbon Dioxide 23 mmol/L (22-29); Chloride 94 mmol/L (98-107); Glucose 100 mg/dL (70-105); Potassium 3.3 mmol/L (3.5-5.1); Sodium 130 mmol/L (136-145)
--- NOTE | 2020-04-02 09:11 | PDOC.HOSPP ---
- Subjective Encounter Date: 04/02/20 Encounter Time: 09:10 Subjective: Overnight patient with acute severe abdominal pain. Night team ordered a CT scan, which was showed no acute findings, but moderate stool burden. Patient continues to report abdominal pain this morning. Reports that her n/v has continued. Denies chest pain, SOB. Patient reports chronic constipation and that she will frequently have to manually disimpact her bowels. She has been doing this over the past year. Chart and medications reviewed. - Objective Vital Signs & Weight: Vital Signs (12 hours) Temp Pulse Resp BP Pulse Ox 04/02/20 07:38 98.6 F 81 20 133/60 99 04/02/20 04:00 97.6 F 96 18 144/100 H 95 04/02/20 00:50 98.3 F 97 18 156/110 H 98 Weight Weight 85 lb Result Diagrams: 04/02/20 09:28 04/02/20 08:29 Hospitalist ROS - Review of Systems Constitutional: reports: weakness, malaise. denies: fever, chills, sweats, other Eyes: denies: pain, vision change, conjunctivae inflammation, eyelid inflammation, redness, other ENT: denies: ear pain, ear discharge, nose pain, nose discharge, nose congestion, mouth pain, mouth swelling, throat pain, throat swelling, other Respiratory: denies: cough, dry, shortness of breath, hemoptysis, SOB with excertion, pleuritic pain, sputum, wheezing, other Cardiovascular: denies: chest pain, palpitations, orthopnea, paroxysmal noc. dyspnea, edema, light headedness, other Gastrointestinal: reports: nausea, vomiting, abdominal pain, constipation. denies: diarrhea, melena, hematochezia, other Genitourinary: denies: dysuria, frequency, incontinence, hematuria, retention, other Musculoskeletal: denies: neck pain, shoulder pain, arm pain, back pain, hand pain, leg pain, foot pain, other Skin: denies: rash, lesions, shannan, bruising, other Neurological: denies: weakness, numbness, incoordination, change in speech, c onfusion, seizures, other - Medication Medications: Active Medications Generic Name Dose Route Start Last Admin Trade Name Freq PRN Reason Stop Dose Admin Acetaminophen 650 mg 04/01/20 15:40 04/01/20 23:11 Acetaminophen 325 Mg Tab PO 650 mg Q4H PRN Administration Headache/Fever/Mild Pain (1-3) Gabapentin 100 mg 04/01/20 21:00 04/02/20 07:54 Gabapentin 100 Mg Cap PO 100 mg TID KIRSTIN Administration Ceftriaxone Sodium 1 gm/ 100 mls @ 200 mls/hr 04/01/20 20:00 04/01/20 20:27 Sodium Chloride IVPB 100 mls Q24HR KIRSTIN Administration Nicotine 7 mg 04/01/20 20:00 04/01/20 20:31 Nicotine 7 Mg Patch TOP 7 mg Q24HR KIRSTIN Administration Ondansetron HCl 4 mg 04/01/20 15:40 04/02/20 05:41 Ondansetron Odt 4 Mg Tab PO 4 mg Q6H PRN Administration Nausea/Vomiting Scopolamine 1.5 mg 04/01/20 17:00 04/01/20 18:21 Scopolamine 1.5 Mg/72 Hour Patch TD 1.5 mg Q3D KIRSTIN Administration Ziprasidone 20 mg 04/01/20 21:00 04/02/20 07:54 Ziprasidone 20 Mg Cap PO 20 mg BID KIRSTIN Administration Hospitalist Exam Vitals: Vital Signs (12 hours) Temp Pulse Resp BP Pulse Ox 04/02/20 07:38 98.6 F 81 20 133/60 99 04/02/20 04:00 97.6 F 96 18 144/100 H 95 04/02/20 00:50 98.3 F 97 18 156/110 H 98 Weight Weight 85 lb General Appearance: NAD, awake alert General - other findings: Cachectic Eye: PERRL, anicteric sclera ENT: normocephalic atraumatic, no oropharyngeal lesions, moist mucosa Neck: supple, symmetric, no JVD, no thyromegaly, no lymphadenopathy, no carotid bruit Heart: RRR, no murmur, no gallops, no rubs, normal peripheral pulses Respiratory: CTAB, no wheezes, no rales, no ronchi, normal chest expansion, no tachypnea, normal percussion Gastrointestinal: soft, normal bowel sounds, tender to palpation Extremities: no cyanosis, no clubbing, no edema Skin: normal turgor, no lesions, no rashes Neurological: cranial nerve grossly intact, normal sensation to touch, no weakness, no focal deficits, no new deficit Musculoskeletal: normal tone, normal strength, no muscle wasting Psychiatric: normal affect, normal behavior, A&O x 3 Hosp A/P - Plan 24-year-old female with past medical history of bipolar disorder presents with chronic nausea and vomiting, significant 60 pound weight loss in the past year presents with intractable nausea, severe malnutrition, acute kidney injury, several electrolyte abnormalities and overall failure to thrive picture. Intractable nausea and vomiting Patient with intractable nausea and vomiting. Unable to tolerate nothing p.o. was sent in from GI office for LUIS noted on labs. This is a chronic problem for the patient and she has been following with GI and was supposed to see specialist in [place], however never made of follow-up appointment. There is question of marijuana hyperemesis syndrome, however patient reports that she has tried quitting and this is not helped her symptoms. Impressed upon patient the need to quit marijuana to exclude this diagnosis. Patient received Zofran and metoclopramide in emergency room. She has improvement in her nausea symptoms but unable to keep down liquids or solids. Suspect patient may have metabolic disorder given chronicity of symptoms and severity of patient's malnutrition. Will work-up patient for other less obvious causes of intractable nausea and vomiting. Plan IV Zofran, scopolamin patch -Gastric emptying study in 2013 negative GI consult Abdominal pain Patient with abdominal pain overnight. CT abdomen with no acute findings and only moderate amount of stool. RUQUS wnl. Lipase wnl. Given patient's chronic abdominal pain, intractable n/v suspect celiac disease or other metabolic disorder. Patient's abdomen is non-peritoneal on exam but TTP. Plan -CT, RUQUS negative -Gluten free diet, celiac testing, 24 hr PBG -Serial abdominal exams -GI consult Acute kidney injury Patient with LUIS BUNs/CR 27/2.29. Likely secondary to hypovolemia secondary to GI losses. Will start IV fluids and consult nephrology given patient's young age. Plan Trend kidney function IV fluids Avoid nephrotoxic agents when possible Renal dosing as appropriate Nephrology consult Hypercalcemia Patient hypercalcemic with calcium 10.6. Patient's protein level is actually high likely 2/2 dehydration. Given patient's elevated elevated calcium level, will send for SPEP/UPEP especially given patient's global pain and significant weight loss. We will also check parathyroid hormone and vitamin D levels. Plan IV fluids to bring calcium down SPEP/UPEP, vitamin D Hypokalemia Hypokalemic to 3.2. Secondary to GI losses. Will replete and continue to monitor Hyponatremia Sodium 131. Likely hypovolemic hyponatremia secondary to dehydration and GI losses. Urine osm/serum osm consistent with hypovolemic hyponatremia. Improved with IVF. Anion gap metabolic acidosis Patient with anion gap metabolic acidosis likely secondary to starvation ketosis. Will administer IV fluids continue to monitor. Failure to thrive Patient with failure to thrive picture. Had significant weight loss in the past year and has cachexia on exam with lanugo. Patient has tried multiple nutrition supplements in the past and is unable to keep on any weight or keep any food down. Suspect patient may have underlying metabolic disorder. Will obtain n utrition consult. Plan -Plan as above Nutrition consult recommendations appreciated Anxiety and depression History of anxiety and depression. We will continue home medications. Patient reports she is stable, and feels as though her medical problems are the main cause of her anxiety and depression and that she did not have issues with anxiety or depression prior to developing these medical issues. Plan -Continue home medications DVT prophylaxisSCDs Full code Case discussed with attending physician, Dr. Aguilar
[2020-04-02] MEDS: Morphine 2 MG/ML VIAL SLOW IVP PRN ×3 (09:14→20:53)
[2020-04-02] MEDS: Ondansetron PF 4 MG/2 ML Vial IVP PRN (09:38)
[2020-04-02] MEDS: D5 NS w/ 40 mEq KCl 1,000 ML IV SCH ×2 (09:44→18:35)
[2020-04-02 09:47] LABS: Hemoglobin 13.2 g/dL (12.0-16.0); Mean Corpuscular HGB CONC 33.8 g/dL (32.0-36.0); Mean Corpuscular Hemoglobin 32.3 pg (27.0-31.0); Mean Corpuscular Volume 95.5 fL (78.0-98.0); Mean Platelet Volume 8.1 fL (7.4-10.4); Platelet Count 401 thou/uL (130-400); RBC Distribution Width 11.3 % (11.5-14.5); Red Blood Cell (RBC) Count 4.07 mill/uL (4.20-5.40); White Blood Cell (WBC) Count 12.9 thou/uL (4.8-10.8)
[2020-04-02] MEDS ORDERED: Morphine 2 MG/ML VIAL SLOW IVP SCH (10:15)
--- NOTE | 2020-04-02 10:36 | ULT ---
EXAM: US Gallbladder RUQ CLINICAL HISTORY: Abdominal pain. COMPARISON: 08/12/2013 FINDINGS: Pancreas: The head and proximal pancreatic body have a normal echotexture. The remainder the pancrea s is obscured by bowel gas Liver:Hepatic parenchyma has a normal echotexture. No hepatic masses or intrahepatic biliary dilatati on. Right hepatic lobe: 13.7 cm Gallbladder: No sonographic evidence of cholelithiasis, gallbladder wall thickening or pericholecysti c fluid. Serrano's sign:Negative Portal Vein: Patent. Appropriate directional flow Bile ducts: 0.26 cm common bile duct diameter Right kidney: No hydronephrosis. Right kidney measures 9.8 x 4.2 x 5.1 cm in length. IMPRESSION: Unremarkable exam.
[2020-04-02 12:10] LABS: Band 1 % (5-11); Lymphocytes 38 % (21-51); MDiff Complete? YES; Monocytes 3 % (0-10); Neutrophil 57 % (42-75); Platelet Morphology Comment Appears Adequate; RBC Morphology Normal
[2020-04-02] MEDS: Nicotine 7 MG PATCH TOP SCH (18:31)
[2020-04-02] MEDS: cefTRIAXone\\ROCEPHIN 1 GM in Sodium Chloride 0.9% 100 ML IVPB SCH (20:42)
[2020-04-02] MEDS ORDERED: FLU VACC QS2020-21(6MOS UP)/PF 60 MCG/0.5 ML SYRINGE IM ONE (21:00)
[2020-04-03] MEDS: D5 NS w/ 40 mEq KCl 1,000 ML IV SCH ×4 (01:00→20:55)
[2020-04-03] MEDS: Morphine 2 MG/ML VIAL SLOW IVP PRN ×3 (02:55→13:25)
[2020-04-03 05:58] LABS: #Basophils 0.1 thou/uL (0.0-0.2); #Eosinphils 0.1 thou/uL (0.0-0.7); #Lymphocytes 4.2 thou/uL (1.20-3.40); #Monocytes 0.4 thou/uL (0.11-0.59); #Neutrophils 4.7 thou/uL (1.40-6.50); %Basophils 1.1 % (0.0-1.0); %Eosinophils 0.6 % (0.0-10.0); %Lymphocytes 44.7 % (21.0-51.0); %Monocytes 4.1 % (0.0-10.0); %Neutrophils 49.5 % (42.0-75.0); Hemoglobin 11.4 g/dL (12.0-16.0); Mean Corpuscular HGB CONC 32.4 g/dL (32.0-36.0); Mean Corpuscular Hemoglobin 31.4 pg (27.0-31.0); Mean Corpuscular Volume 96.7 fL (78.0-98.0); Mean Platelet Volume 7.6 fL (7.4-10.4); Platelet Count 330 thou/uL (130-400); RBC Distribution Width 11.3 % (11.5-14.5); Red Blood Cell (RBC) Count 3.62 mill/uL (4.20-5.40); White Blood Cell (WBC) Count 9.4 thou/uL (4.8-10.8)
[2020-04-03 06:16] LABS: CRP (Inflammatory) Less than 0.50 mg/dL (= or < 0.5); Phosphorus 2.9 mg/dL (2.3-4.7)
[2020-04-03 07:14] LABS: SARS-CoV-2 NAA Rapid Test Not Detected (NotDetected)
--- NOTE | 2020-04-03 07:31 | CON ---
DATE OF CONSULTATION: 04/02/[address] Sousa for intractable nausea, vomiting. HISTORY OF PRESENT ILLNESS: Ms. Contreras is a 24-year-old female, who is admitted to the hospital for failure to thrive, we had seen her back in 2013 in hospital with similar symptoms of six weeks of recurrent nausea and vomiting. Actually, she had been seen by Dr. Boyd at that time for 6 weeks of nausea, vomiting of unclear etiology. I had seen before that with negative upper and lower endoscopy. Negative evaluation for celiac biopsies and serology. She had normal cortisol and ESR at that time. Recently, she was referred back to the office. She was DQ2 positive and thought maybe she had celiac. She smokes marijuana on daily basis. We recommended she stop that. She is very cachectic. She denied any hematemesis, melena, hematochezia. Placed on omeprazole and Phenergan at that time. 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 She followed up again on the and noted that she had lost another 8 pounds and stopped smoking marijuana. Ultimate decision was made to send her to the hospital. She seemed very dehydrated, cachectic. She has had previous HIV testing, which was negative at [place] [facility] she reports she weighed 135 pounds and weighs 85 now. She reports after she eats she just does not feel she would hold food down, it will come back up. When asked directly about bulimia, she states that sometimes she does make herself vomit. She has chronic constipation. She had been in the hospital in November of last year with diagnosis of cyclical vomiting syndrome, normal thyroid evaluation, normal labs. She had slightly low TSH at that time, a normal T3 and T4. She was ultimately discharge with Zofran and Macrobid for possible UTI. On February 26, she was seen in emergency room, where she had a CAT scan of the abdomen and pelvis, no acute processes noted, definite lack of intraabdominal fat, this was a noncontrast study, but no signs of obstruction were seen. This evaluation, she had a CT scan today without IV contrast, showed multiple nonobstructing right renal calculi, moderate amount of stool throughout the colon with some constipation, and ultrasound showed no gallstones. PAST MEDICAL HISTORY: History of intermittent vomiting issues in the past, bipolar disorder, which was treated at [facility]. PAST SURGICAL HISTORY: Tonsillectomy, past endoscopy as noted above. FAMILY HISTORY: Liver disease in a grandparent. No celiac, IBS, or cancers. SOCIAL HISTORY: Lives at home with family. She is using marijuana daily. Smokes daily. Denies alcohol use. She states she has not used marijuana in 8 days. MEDICATIONS: At home, 1. Phenergan. 2. Potassium. 3. Zofran. 4. Metronidazole. 5. Neurontin. 6. Geodon. Medications here, 1. Geodon 20 mg b.i.d. 2. Scopolamine. 3. Normal saline with 20 of K at 125. 4. Zofran. 5. Nicotine patch. 6. Morphine p.r.n. 7. Gabapentin. 8. Folic acid. 9. Rocephin. 10. Tylenol. PHYSICAL EXAMINATION: GENERAL: She is a cachectic female, in bed, muscle wasting. VITAL SIGNS: Temperature max 97, pulse 68, blood pressure 109/71. NECK: She has no adenopathy in the neck. LUNGS: Clear. HEART: Regular without clicks or murmurs. ABDOMEN: Soft, nontender, scaphoid. There is no rebound. There is no guarding. There is no palpable hepatosplenomegaly. EXTREMITIES: No clubbing, cyanosis, or edema. There is no adenopathy. Decreased muscle mass noted. LABORATORY DATA: White count 12, hemoglobin 13, platelets 401, 57% neutrophils, 38% lymphocytes. Sodium 130, potassium 3.3, chloride 94, BUN 24, creatinine 1.01, calcium 10, bilirubin 0.3, AST and ALT are 15 and 11, alkaline phosphatase 50, protein 7.9, albumin 4.9, lipase 31, CK was 120 on 12/05/2019. TSH was 0.9 in 11/2019. test negative on 04/01. In 2000, remote history of evaluation for cortisol this admission was normal, 26. Folate 5.5, B12 722. Previous evaluation for serum metanephrines negative, normal. Urine shows squames and white blood cells. UDS positive for cannabinoids, negative for everything else. Plasma alcohol less than 10 in 11/2019. IgA 76 in 2013. Celiac studies negative then. HIV negative, 04/01/20. She has no COVID test performed. ASSESSMENT: A 24-year-old female with cachexia, weighing 85 pounds, slightly elevated platelet count, history of refractory vomiting, this may be related to cyclical vomiting. I have more concerns that she may be anorexic. She has had significant evaluation in the past possible she could have celiac disease, negative serologic values in the past based on her low IgA levels, but she has had negative biopsy in the past, but she is on a gluten-free diet. Previous evaluations have not shown signs of inflammatory bowel disease. She is on Geodon, which can cause significant constipation and does have bipolar disorder, which I think likely may be anorexia nervosa. RECOMMENDATIONS: She needs a COVID test and EGD tomorrow with small bowel biopsies. I will perform that as soon as the COVID test is back. Job ID: [id number]
--- NOTE | 2020-04-03 08:48 | PDOC.HOSPP ---
- Subjective Encounter Date: 04/03/20 Encounter Time: 08:47 Subjective: complaining of whole body pain x 6 mos. hungry with intractable nausea and vomiting - Objective Vital Signs & Weight: Vital Signs (12 hours) Temp Pulse Resp BP Pulse Ox 04/03/20 08:00 98.0 F 62 16 112/53 L 99 04/03/20 05:53 98.2 F 108 H 22 H 115/74 100 04/03/20 00:00 98.4 F 94 16 102/58 L 98 Weight Admit Weight 85 lb Weight 85 lb I&O: 04/02/20 04/03/20 04/04/20 06:59 06:59 06:59 Intake Total 120 Balance 120 Result Diagrams: 04/03/20 05:42 04/02/20 08:29 Hospitalist ROS - Medication Medications: Active Medications Generic Name Dose Route Start Last Admin Trade Name Freq PRN Reason Stop Dose Admin Acetaminophen 650 mg 04/01/20 15:40 04/01/20 23:11 Acetaminophen 325 Mg Tab PO 650 mg Q4H PRN Administration Headache/Fever/Mild Pain (1-3) Bisacodyl 5 mg 04/02/20 08:08 04/02/20 12:50 Bisacodyl 5 Mg Tab PO 5 mg DAILYPRN PRN Administration Constipation Gabapentin 100 mg 04/01/20 21:00 04/02/20 20:40 Gabapentin 100 Mg Cap PO 100 mg TID KIRSTIN Administration Ceftriaxone Sodium 1 gm/ 100 mls @ 200 mls/hr 04/01/20 20:00 04/02/20 20:42 Sodium Chloride IVPB 100 mls Q24HR KIRSTIN Administration Potassium Chloride/Dextrose/Sod Cl 1,000 mls @ 125 mls/hr 04/02/20 09:00 04/03/20 01:00 D5 Ns W/ 40 Meq Kcl IV 1,000 mls .Q8H KIRSTIN Administration Morphine Sulfate 2 mg 04/02/20 08:57 04/03/20 08:41 Morphine 2 Mg/Ml Vial SLOW IVP 2 mg Q4H PRN Administration Pain Nicotine 7 mg 04/01/20 20:00 04/02/20 18:31 Nicotine 7 Mg Patch TOP 7 mg Q24HR KIRSTIN Administration Ondansetron HCl 4 mg 04/01/20 15:40 04/02/20 05:41 Ondansetron Odt 4 Mg Tab PO 4 mg Q6H PRN Administration Nausea/Vomiting Ondansetron HCl 4 mg 04/01/20 15:40 04/02/20 09:38 Ondansetron Pf 4 Mg/2 Ml Vial IVP 4 mg Q6H PRN Administration Nausea/Vomiting Scopolamine 1.5 mg 04/01/20 17:00 04/01/20 18:21 Scopolamine 1.5 Mg/72 Hour Patch TD 1.5 mg Q3D KIRSTIN Administration Ziprasidone 20 mg 04/01/20 21:00 04/02/20 20:41 Ziprasidone 20 Mg Cap PO 20 mg BID KIRSTIN Administration Hospitalist Exam Vitals: Vital Signs (12 hours) Temp Pulse Resp BP Pulse Ox 04/03/20 08:00 98.0 F 62 16 112/53 L 99 04/03/20 05:53 98.2 F 108 H 22 H 115/74 100 04/03/20 00:00 98.4 F 94 16 102/58 L 98 Weight Admit Weight 85 lb Weight 85 lb General Appearance: awake alert, ill appearing Neck: no JVD Heart: RRR, no murmur Respiratory: CTAB, no wheezes, normal chest expansion Gastrointestinal: soft, normal bowel sounds Extremities: no edema Hosp A/P (1) Back pain, chronic Code(s): M54.9 - DORSALGIA, UNSPECIFIED; G89.29 - OTHER CHRONIC PAIN Status: Acute (2) Cyclical vomiting syndrome Status: Acute (3) Hypokalemia Code(s): E87.6 - HYPOKALEMIA Status: Acute (4) Hypokalemia Code(s): E87.6 - HYPOKALEMIA Status: Acute (5) Marijuana abuse Code(s): F12.10 - CANNABIS ABUSE, UNCOMPLICATED Status: Chronic (6) Tobacco abuse Code(s): Z72.0 - TOBACCO USE Status: Chronic (7) Acute renal failure Status: Resolved Qualifiers: Acute renal failure type: unspecified Qualified Code(s): N17.9 - Acute kidney failure, unspecified - Plan creatinine normalizing on iv fluids EGD today after review of PMH, etc- suspect primary psychiatric problem
[2020-04-03] MEDS ORDERED: Lidocaine 1% PF 5 ML VIAL ONE (09:38)
[2020-04-03] MEDS ORDERED: PROPOFOL 200 MG/20 ML VIAL ONE (09:38)
[2020-04-03] MEDS ORDERED: Midazolam HCl 2 mg/2 ml Vial ONE (10:27)
[2020-04-03] MEDS ORDERED: Ondansetron HCl/PF 4 MG/2 ML Vial IVP PRN (11:14)
[2020-04-03] MEDS ORDERED: Promethazine HCl 25 MG/ML VIAL SLOW IVP PRN (11:14)
[2020-04-03] MEDS ORDERED: Promethazine HCl 25 MG/ML VIAL IM PRN (11:14)
--- NOTE | 2020-04-03 11:31 | OP ---
DATE OF PROCEDURE: 04/03/2020 PROCEDURE PERFORMED: Esophagogastroduodenoscopy with biopsy. INDICATIONS FOR PROCEDURE: Refractory nausea and vomiting, periumbilical/epigastric abdominal pain. DESCRIPTION OF PROCEDURE: After the risks and benefits of the procedure were explained to the patient including risks of bleeding, infection, perforation, reactions to anesthesia, aspiration, and/or pain, informed consent was obtained. The patient was then taken to the endoscopy suite where she was maneuvered into the left lateral decubitus position followed by introduction of deep sedation via propofol and anesthesia support. Once adequate sedation was achieved, the standard gastroscope was introduced into the mouth with intubation of the esophagus, stomach, and the proximal small intestines with the findings listed below. The patient tolerated the procedure well with no immediate perioperative complications. On conclusion of the procedure, all equipment was removed from the patient and she was transferred to PACU in satisfactory condition. FINDINGS: Esophagus: Normal-appearing mucosa was seen in the proximal, mid, and distal esophagus. There was no evidence of erosions, ulcerations, mass lesions, or active/recent bleeding. Stomach: A small areas of pinpoint mucosal erythema were seen throughout the gastric fundus and body in a patchy type configuration, but did not display any other abnormalities. This was considered to be mild in severity. Otherwise, normal-appearing mucosa was seen in the gastric cardia, greater curvature, antrum, and incisura. Multiple random biopsies were taken throughout the stomach for evaluation of possible H pylori status. There was no evidence of erosions, ulcerations, mass lesions, or active/recent bleeding. Duodenum: Normal-appearing mucosa was seen in both the duodenal bulb and second portion of the duodenum. There was no evidence of erosions, ulcerations, mass lesions, or active/recent bleeding. IMPRESSION: 1. Mild patchy nonspecific gastropathy status post biopsies. 2. Otherwise normal upper endoscopy. 3. No etiology for the patient's nausea, vomiting, or abdominal pain was seen during this examination. RECOMMENDATIONS: 1. Would follow up on the biopsy results with further management dictated by the pathology report. If positive for celiac disease or H pylori, I would recommend placing the patient on a gluten-free diet versus place the patient on triple therapy respectively. 2. Continue with aggressive antiemetic support as you are doing. 3. Continue with IV fluids and nutritional support as you are doing. 4. Pain control per primary team. 5. Strongly encouraged cessation of all marijuana as this is the likely source of her nausea and vomiting (especially with symptoms improving with hot shower/bath). Symptoms can persist up to 4 to 6 months after cessation of use. 6. I would have the patient follow up in the GI clinic in 2 to 3 weeks after discharge. We will sign off at this time. Please call with any questions. Job ID: [id number]
[2020-04-03] MEDS: Gabapentin 100 MG CAP PO SCH ×3 (11:38→20:54)
[2020-04-03] MEDS: Folic Acid 1 MG TAB PO SCH (11:38)
[2020-04-03] MEDS: Ziprasidone 20 MG CAP PO SCH ×2 (11:38→20:54)
[2020-04-03] MEDS: Acetaminophen 325 MG TAB PO PRN (18:58)
[2020-04-03] MEDS ORDERED: Melatonin 3 MG TAB PO SCH ×2 (20:15→22:00)
[2020-04-03] MEDS: Nicotine 7 MG PATCH TOP SCH (20:55)
[2020-04-03] MEDS ORDERED: Ketorolac Tromethamine 30 MG/ML VIAL IVP SCH (21:30)
[2020-04-03] MEDS: Ondansetron PF 4 MG/2 ML Vial IVP PRN (21:35)
[2020-04-03] MEDS ORDERED: Gabapentin 100 MG CAP PO SCH (22:00)
[2020-04-03] MEDS ORDERED: Ziprasidone 20 MG CAP PO SCH (22:00)
[2020-04-04] MEDS ORDERED: traMADol HCl 50 MG TAB PO SCH (02:00)
[2020-04-04] MEDS: Ondansetron PF 4 MG/2 ML Vial IVP PRN (02:10)
[2020-04-04] MEDS: Acetaminophen 325 MG TAB PO PRN ×3 (02:10→21:16)
[2020-04-04] MEDS: Simethicone Chewable 80 MG TAB PO PRN ×2 (02:39→12:51)
[2020-04-04 07:37] LABS: #Eosinphils 0.1 thou/uL (0.0-0.7); #Lymphocytes 4.3 thou/uL (1.20-3.40); #Monocytes 0.4 thou/uL (0.11-0.59); #Neutrophils 5.3 thou/uL (1.40-6.50); %Basophils 0.4 % (0.0-1.0); %Eosinophils 0.7 % (0.0-10.0); %Lymphocytes 42.8 % (21.0-51.0); %Monocytes 3.5 % (0.0-10.0); %Neutrophils 52.7 % (42.0-75.0); Mean Corpuscular HGB CONC 34.2 g/dL (32.0-36.0); Mean Corpuscular Hemoglobin 33.4 pg (27.0-31.0); Mean Corpuscular Volume 97.5 fL (78.0-98.0); Mean Platelet Volume 8.3 fL (7.4-10.4); Platelet Count 296 thou/uL (130-400); RBC Distribution Width 11.3 % (11.5-14.5); White Blood Cell (WBC) Count 10.1 thou/uL (4.8-10.8)
[2020-04-04] MEDS: Gabapentin 100 MG CAP PO SCH ×3 (08:51→20:53)
[2020-04-04] MEDS: Ondansetron ODT 4 MG TAB PO PRN (08:51)
[2020-04-04] MEDS: Ziprasidone 20 MG CAP PO SCH ×2 (08:57→20:53)
[2020-04-04] MEDS: Folic Acid 1 MG TAB PO SCH (08:58)
[2020-04-04] MEDS: D5 NS w/ 40 mEq KCl 1,000 ML IV SCH ×2 (09:33→20:54)
[2020-04-04 09:40] LABS: Albumin-Ur 41.5 % (.); Alpha 1 - Ur 6.9 % (.); Alpha 2 - Ur 16.2 % (.); Beta-Ur 16.4 % (.); M-Spike,% Not Observed % (Not Observed); Protein, Urine 46.9 mg/dL (Not Estab.)
[2020-04-04 09:40] LABS: A/G Ratio 1.2 (0.7-1.7); Albumin 4.4 g/dL (2.9-4.4); Alpha 1 0.4 g/dL (0.0-0.4); Alpha 2 1.3 g/dL (0.4-1.0); Beta 1.1 g/dL (0.7-1.3); Gamma 0.9 g/dL (0.4-1.8); Globulin, Total 3.8 g/dL (2.2-3.9); M-Spike Not Observed g/dL (Not Observed)
--- NOTE | 2020-04-04 09:47 | PDOC.HOSPP ---
- Subjective Encounter Date: 04/04/20 Encounter Time: 09:44 Subjective: I suspect I have anorexia - Objective Vital Signs & Weight: Vital Signs (12 hours) Temp Pulse Resp BP Pulse Ox 04/04/20 09:04 98.2 F 62 16 121/72 99 04/04/20 00:12 94 L Weight Admit Weight 85 lb Weight 85 lb I&O: 04/03/20 04/04/20 04/05/20 06:59 06:59 06:59 Intake Total 120 1999 Output Total 1 Balance 120 1998 Result Diagrams: 04/04/20 07:28 04/02/20 08:29 Hospitalist ROS - Medication Medications: Active Medications Generic Name Dose Route Start Last Admin Trade Name Freq PRN Reason Stop Dose Admin Acetaminophen 650 mg 04/01/20 15:40 04/04/20 08:58 Acetaminophen 325 Mg Tab PO 650 mg Q4H PRN Administration Headache/Fever/Mild Pain (1-3) Bisacodyl 5 mg 04/02/20 08:08 04/02/20 12:50 Bisacodyl 5 Mg Tab PO 5 mg DAILYPRN PRN Administration Constipation Folic Acid 1 mg 04/03/20 09:00 04/04/20 08:58 Folic Acid 1 Mg Tab PO 1 mg DAILY KIRSTIN Administration Gabapentin 100 mg 04/01/20 21:00 04/04/20 08:51 Gabapentin 100 Mg Cap PO 100 mg TID KIRSTIN Administration Potassium Chloride/Dextrose/Sod Cl 1,000 mls @ 125 mls/hr 04/02/20 09:00 04/04/20 09:33 D5 Ns W/ 40 Meq Kcl IV Not Given .Q8H KIRSTIN Nicotine 7 mg 04/01/20 20:00 04/03/20 20:55 Nicotine 7 Mg Patch TOP 7 mg Q24HR KIRSTIN Administration Ondansetron HCl 4 mg 04/01/20 15:40 04/04/20 08:51 Ondansetron Odt 4 Mg Tab PO 4 mg Q6H PRN Administration Nausea/Vomiting Ondansetron HCl 4 mg 04/01/20 15:40 04/04/20 02:10 Ondansetron Pf 4 Mg/2 Ml Vial IVP 4 mg Q6H PRN Administration Nausea/Vomiting Scopolamine 1.5 mg 04/01/20 17:00 04/01/20 18:21 Scopolamine 1.5 Mg/72 Hour Patch TD 1.5 mg Q3D KIRSTIN Administration Simethicone 80 mg 04/04/20 02:18 04/04/20 02:39 Simethicone Chewable 80 Mg Tab PO 80 mg Q4H PRN Administration Gas Pain Ziprasidone 20 mg 04/01/20 21:00 04/04/20 08:57 Ziprasidone 20 Mg Cap PO 20 mg BID KIRSTIN Administration Hospitalist Exam Vitals: Vital Signs (12 hours) Temp Pulse Resp BP Pulse Ox 04/04/20 09:04 98.2 F 62 16 121/72 99 04/04/20 00:12 94 L Weight Admit Weight 85 lb Weight 85 lb General Appearance: awake alert Neck: no JVD Heart: RRR, no murmur Respiratory: CTAB Gastrointestinal: soft, normal bowel sounds Extremities: no edema Hosp A/P (1) Cyclical vomiting syndrome Status: Acute (2) Hypokalemia Code(s): E87.6 - HYPOKALEMIA Status: Acute (3) Hypokalemia Code(s): E87.6 - HYPOKALEMIA Status: Acute (4) Marijuana abuse Code(s): F12.10 - CANNABIS ABUSE, UNCOMPLICATED Status: Chronic (5) Tobacco abuse Code(s): Z72.0 - TOBACCO USE Status: Chronic (6) Acute renal failure Status: Resolved Qualifiers: Acute renal failure type: unspecified Qualified Code(s): N17.9 - Acute kidney failure, unspecified (7) Bipolar 1 disorder Code(s): F31.9 - BIPOLAR DISORDER, UNSPECIFIED Status: Acute - Plan alert, wants to stay in hospital await path cont antiemetics probale DC 04/05/20
[2020-04-04] MEDS: Scopolamine 1.5 mg/72 hour Patch TD SCH (16:20)
[2020-04-04] MEDS ORDERED: Melatonin 3 MG TAB PO PRN (20:52)
[2020-04-04] MEDS: Nicotine 7 MG PATCH TOP SCH (20:53)
[2020-04-04] MEDS ORDERED: Melatonin 3 MG TAB PO SCH (21:15)
[2020-04-05] MEDS: Acetaminophen 325 MG TAB PO PRN ×2 (05:19→12:00)
[2020-04-05 05:50] LABS: #Basophils 0.1 thou/uL (0.0-0.2); #Eosinphils 0.1 thou/uL (0.0-0.7); #Lymphocytes 3.6 thou/uL (1.20-3.40); #Monocytes 0.4 thou/uL (0.11-0.59); #Neutrophils 5.2 thou/uL (1.40-6.50); %Basophils 0.7 % (0.0-1.0); %Eosinophils 0.6 % (0.0-10.0); %Lymphocytes 38.1 % (21.0-51.0); %Monocytes 4.6 % (0.0-10.0); Hemoglobin 11.9 g/dL (12.0-16.0); Mean Corpuscular HGB CONC 34.5 g/dL (32.0-36.0); Mean Corpuscular Hemoglobin 34.2 pg (27.0-31.0); Mean Corpuscular Volume 99.1 fL (78.0-98.0); Mean Platelet Volume 7.9 fL (7.4-10.4); Platelet Count 329 thou/uL (130-400); RBC Distribution Width 11.4 % (11.5-14.5); Red Blood Cell (RBC) Count 3.48 mill/uL (4.20-5.40); White Blood Cell (WBC) Count 9.3 thou/uL (4.8-10.8)
[2020-04-05] MEDS: D5 NS w/ 40 mEq KCl 1,000 ML IV SCH (06:39)
[2020-04-05] MEDS: Ziprasidone 20 MG CAP PO SCH (09:41)
[2020-04-05] MEDS: Gabapentin 100 MG CAP PO SCH (09:41)
[2020-04-05] MEDS: Folic Acid 1 MG TAB PO SCH (09:41)
[2020-04-05] MEDS: Simethicone Chewable 80 MG TAB PO PRN (11:59)
[2020-04-05 12:36] LABS: ANA Symphony (Qualitative) Negative (Negative); ANA Symphony (Quantitative) 0.2 Ratio (< 0.7 Negative); dsDNA IgG Antibody 1.2 IU/mL (<10 Negative)
--- NOTE | 2020-04-05 13:15 | PDOC.DS.DS ---
Provider Date of Admission: 04/01/20 15:40 Date of Discharge: 04/05/20 Admitting Provider: Aric Aguilar MD Consultations: Gastroentrology Primary Care Physician: [facility] Clinic Course Hospital Course: This patient is a 24-year-old woman whose medical history includes bipolar disorder, cyclical vomiting syndrome complicated by marijuana abuse was admitted to the hospital with intractable nausea and vomiting. She was placed on supportive care with volume resuscitation and antiemetics. She was then seen in consult by the GI services and underwent an upper endoscopy. She has mild gastritis but no other significant finding. At any rate he was strongly felt that the patient symptoms were likely related to her use of marijuana. She was advised to discontinue at this. I saw and evaluated her today and she is doing really well and is asking about going home. I went ahead and discharge her home. She has biopsy pending from the duodenum and when the result comes out we will update the patient accordingly. Resuscitation Status: 04/01/20 15:40 Resuscitation Status Routine Co-Sign Provider: Resuscitation Status: FULL: Full Resuscitation Lab Results: 04/05/20 05:02 04/02/20 08:29 Abnormal Lab Results - Last 48 hrs 04/01/20 16:11: [id number] 1.3 H 04/04/20 07:28: RBC 3.30 L, Hgb 11.0 L, Hct 32.2 L, MCH 33.4 H, RDW 11.3 L, Lymphocytes # 4.3 H 04/05/20 05:02: RBC 3.48 L, Hgb 11.9 L, Hct 34.5 L, MCV 99.1 H, MCH 34.2 H, RDW 11.4 L, Lymphocytes # 3.6 H Microbiology - Entire Visit 04/03/20 11:50 Stool Stool Lactoferrin - Final Vitals: Vital Signs (12 hours) Temp Pulse Resp BP Pulse Ox 04/05/20 08:00 98.2 F 104 H 18 132/87 99 04/05/20 04:00 99.4 F 60 20 131/75 98 Weight Admit Weight 85 lb Weight 85 lb Physical Exam: The patient was seen and examined on the day of discharge. General Appearance: NAD, awake alert Eye: PERRL, anicteric sclera ENT: normocephalic atraumatic, no oropharyngeal lesions Neck: supple, symmetric Respiratory: CTAB, no wheezes Cardiovascular: RRR, no murmur Gastrointestinal: soft, non-tender, non-distended, normal bowel sounds Neurological: cranial nerve grossly intact, normal sensation to touch, no focal deficits, no new deficit PSYCH: normal affect, normal behavior, A&O x 3 Problem Time Spent in discharge related activities (mins): 30 Plan Prescriptions: Scopolamine [Transderm Scop] 1.5 mg TD Q3D #10 patch Home Medications: Medication Instructions Recorded Confirmed Type Ondansetron HCl [Zofran] 4 mg PO Q6HR PRN #30 tab 12/02/19 04/01/20 Rx Gabapentin [Neurontin] 100 mg PO TID 04/01/20 04/01/20 History Multivitamin [One-A-Day Essential] 1 tab PO DAILY 04/01/20 04/01/20 History Omeprazole 40 mg PO DAILY 04/01/20 04/01/20 History Potassium Gluconate [Potassium] 99 mg PO DAILY 04/01/20 04/01/20 History Promethazine [Phenergan] 25 mg PO TID PRN 04/01/20 04/01/20 History Ziprasidone HCl 20 mg PO BID 04/01/20 04/01/20 History Scopolamine [Transderm Scop] 1.5 mg TD Q3D #10 patch 04/05/20 Rx Allergies: No Known Drug Allergies Allergy (Verified 09/15/13 02:04) Activity:: Activity as Tolerated Nourishment:: Regular Diet Therapies:: Not Applicable Equipment/Supplies:: Not Applicable Referrals: [facility] [Primary Care Provider] - Disposition: HOME Quality CORE MEASURES:: N/A
[2020-04-05 14:38] VITALS: BP 101/69; TEMP 98
[2020-04-05 14:43] LABS: EliA Celiac New Method **** NEW METHOD ****; t-Transglutaminase (tTG) IgA Less than 0.1 EliAU/mL (<7 Negative); t-Transglutaminase (tTG) IgG Less than 0.6 EliAU/mL (<7 Negative)
[2020-04-12 14:12] LABS: Porphobilinogen-Quant 1.1 mg/L (0.0-2.0)
== END 2020-04-05 15:15 | disposition home or self-care (01) | DRG 393 ==
LOC: ERS 11:44 → T4-A 15:40
PROVIDERS: ADMIT Internal Medicine; ATTEND Hospitalist
PROC: 0DB68ZX Excision of Stomach, Via Natural or Artificial Opening Endoscopic, Diagnostic (ICD-10-PCS; principal; 2020-04-03)
DX: R11.15 Cyclical vomiting syndrome unrelated to migraine (principal); E43 Unspecified severe protein-calorie malnutrition; N17.9 Acute kidney failure, unspecified; E87.1 Hypo-osmolality and hyponatremia; E87.2 Acidosis; Z68.1 Body mass index [BMI] 19.9 or less, adult; R64 Cachexia; Z20.822 Contact with and (suspected) exposure to COVID-19; F41.9 Anxiety disorder, unspecified; F31.9 Bipolar disorder, unspecified; F12.10 Cannabis abuse, uncomplicated; F17.210 Nicotine dependence, cigarettes, uncomplicated; E83.52 Hypercalcemia; E87.6 Hypokalemia; R62.7 Adult failure to thrive; K59.09 Other constipation; M54.9 Dorsalgia, unspecified; K31.89 Other diseases of stomach and duodenum; K29.70 Gastritis, unspecified, without bleeding; Z28.21 Immunization not carried out because of patient refusal; Z79.899 Other long term (current) drug therapy; Z83.3 Family history of diabetes mellitus
CPT/HCPCS: 36415; 74176; 76705; 80053; 80306; 81003; 81015; 82306; 82330; 82436; 82533; 82607; 82746; 83036; 83516; 83605; 83615; 83630; 83690; 83735; 83930; 83935; 83970; 84100; 84110; 84120; 84133; 84134; 84165; 84166; 84300; 84425; 84443; 84703; 85025; 85060; 85652; 86038; 86140; 86225; 86480; 86780; 87389; 88305; 88342; 96361; 96374; 96375; J0696; J1885; J2250; J2270; J2405; J2704; J3411; J3480; J3490; J7120; Q0162; U0002

== ENCOUNTER 2020-05-23 18:05 | Inpatient (IN) | payer MEDICAID, OTHER ==
[2020-05-23] MEDS ORDERED: Fentanyl 100 MCG/2 ML VIAL ONE (19:09)
[2020-05-23] MEDS ORDERED: cefTRIAXone\\ROCEPHIN 2 GM VIAL ONE (19:09)
[2020-05-23] MEDS ORDERED: Acetaminophen 325 MG TAB PO PRN (19:47)
[2020-05-23] MEDS ORDERED: Acetaminophen 650 MG Suppository PR PRN (19:47)
[2020-05-23 20:45] LABS: Lactic Acid 1.6 mmol/L (0.5-2.2)
[2020-05-23 20:49] LABS: Anion Gap 22 mmol/L (10-20); BUN (Urea Nitrogen) 49 mg/dL (7.0-18.7); CK (CPK) 280 U/L (29-168); CRP (Inflammatory) Less than 0.50 mg/dL (= or < 0.5); Calc. Creatinine Clearance 0 mL/min (70-130); Calcium 9.6 mg/dL (7.8-10.44); Carbon Dioxide 17 mmol/L (22-29); Chloride 92 mmol/L (98-107); Glucose 109 mg/dL (70-105); Magnesium 2.3 mg/dL (1.6-2.6); Phosphorus 7.1 mg/dL (2.3-4.7); Potassium 3.3 mmol/L (3.5-5.1); Sodium 128 mmol/L (136-145)
[2020-05-23] MEDS ORDERED: traMADol HCl 50 MG TAB PO SCH (23:30)
[2020-05-23] MEDS ORDERED: Potassium Chloride 20 MEQ TAB PO SCH (23:30)
[2020-05-23] MEDS: Famotidine/PF 20 mg/2ml Vial SLOW IVP SCH (23:33)
[2020-05-24 00:59] VITALS: BMI 17.5
[2020-05-24] MEDS ORDERED: traMADol HCl 50 MG TAB PO SCH (06:15)
[2020-05-24 06:33] LABS: #Basophils 0.1 thou/uL (0.0-0.2); #Lymphocytes 3.5 thou/uL (1.20-3.40); #Monocytes 1.2 thou/uL (0.11-0.59); #Neutrophils 14.5 thou/uL (1.40-6.50); %Basophils 0.3 % (0.0-1.0); %Eosinophils 0.1 % (0.0-10.0); %Lymphocytes 18.2 % (21.0-51.0); %Neutrophils 75.4 % (42.0-75.0); Hemoglobin 14.2 g/dL (12.0-16.0); Mean Corpuscular Hemoglobin 32.2 pg (27.0-31.0); Mean Corpuscular Volume 94.7 fL (78.0-98.0); Mean Platelet Volume 7.3 fL (7.4-10.4); Platelet Count 506 thou/uL (130-400); RBC Distribution Width 11.5 % (11.5-14.5); Red Blood Cell (RBC) Count 4.41 mill/uL (4.20-5.40); White Blood Cell (WBC) Count 19.2 thou/uL (4.8-10.8)
[2020-05-24 07:11] LABS: ALT (SGPT) 11 U/L (8-55); AST (SGOT) 17 U/L (5-34); Albumin 4.8 g/dL (3.5-5.0); Alkaline Phosphatase 60 U/L (40-110); Anion Gap 19 mmol/L (10-20); BUN (Urea Nitrogen) 41 mg/dL (7.0-18.7); Bilirubin, Total 0.4 mg/dL (0.2-1.2); CK (CPK) 448 U/L (29-168); Calc. Creatinine Clearance 55 mL/min (70-130); Calcium 9.8 mg/dL (7.8-10.44); Carbon Dioxide 19 mmol/L (22-29); Chloride 96 mmol/L (98-107); Globulin 3.3 g/dL (2.4-3.5); Glucose 118 mg/dL (70-105); Magnesium 2.5 mg/dL (1.6-2.6); Phosphorus 3.4 mg/dL (2.3-4.7); Potassium 4.1 mmol/L (3.5-5.1); Protein, Total 8.1 g/dL (6.0-8.3); Sodium 130 mmol/L (136-145)
[2020-05-24] MEDS: Calcium Carbonate 600 MG + Vit D TAB PO SCH ×2 (07:41→17:13)
[2020-05-24] MEDS: Sodium Chloride 0.9% 1,000 ML IV SCH ×3 (07:41→17:43)
[2020-05-24] MEDS ORDERED: Ergocalciferol 1.25 MG(50,000 UNITS) CAP PO SCH (09:00)
[2020-05-24] MEDS: traMADol HCl 50 MG TAB PO PRN ×2 (09:55→17:13)
[2020-05-24] MEDS: Multivit, Therapeutic 1 TAB PO SCH (09:56)
[2020-05-24] MEDS: Thiamine 100 MG TAB PO SCH (09:56)
[2020-05-24] MEDS: pyridOXINE 50 MG (B6) TAB PO SCH (09:56)
[2020-05-24] MEDS: Folic Acid 1 MG TAB PO SCH (09:56)
[2020-05-24] MEDS ORDERED: Nicotine 14 MG PATCH TD SCH (10:45)
[2020-05-24] MEDS ORDERED: Lorazepam 0.5 MG TAB PO SCH (10:45)
[2020-05-24] MEDS ORDERED: cloNIDine 0.1 MG TAB PO PRN (12:21)
[2020-05-24] MEDS: Famotidine/PF 20 mg/2ml Vial SLOW IVP SCH (20:43)
[2020-05-24] MEDS ORDERED: Mirtazapine 15 MG TAB PO SCH (21:00)
[2020-05-25] MEDS: Sodium Chloride 0.9% 1,000 ML IV SCH ×2 (00:08→17:40)
[2020-05-25] MEDS ORDERED: Lorazepam 0.5 MG TAB PO SCH ×2 (00:15→06:45)
[2020-05-25] MEDS: traMADol HCl 50 MG TAB PO PRN ×2 (04:58→13:51)
[2020-05-25 05:46] LABS: #Basophils 0.1 thou/uL (0.0-0.2); #Eosinphils 0.1 thou/uL (0.0-0.7); #Monocytes 0.8 thou/uL (0.11-0.59); #Neutrophils 6.2 thou/uL (1.40-6.50); %Basophils 0.5 % (0.0-1.0); %Eosinophils 0.8 % (0.0-10.0); %Lymphocytes 41.2 % (21.0-51.0); %Monocytes 6.4 % (0.0-10.0); %Neutrophils 51.1 % (42.0-75.0); Hemoglobin 11.9 g/dL (12.0-16.0); Mean Corpuscular HGB CONC 34.3 g/dL (32.0-36.0); Mean Corpuscular Hemoglobin 33.2 pg (27.0-31.0); Mean Corpuscular Volume 96.8 fL (78.0-98.0); Mean Platelet Volume 7.3 fL (7.4-10.4); Platelet Count 389 thou/uL (130-400); RBC Distribution Width 11.5 % (11.5-14.5); Red Blood Cell (RBC) Count 3.59 mill/uL (4.20-5.40); White Blood Cell (WBC) Count 12.2 thou/uL (4.8-10.8)
[2020-05-25 06:04] LABS: Anion Gap 11 mmol/L (10-20); BUN (Urea Nitrogen) 26 mg/dL (7.0-18.7); CK (CPK) 414 U/L (29-168); Calc. Creatinine Clearance 95 mL/min (70-130); Calcium 8.5 mg/dL (7.8-10.44); Carbon Dioxide 23 mmol/L (22-29); Chloride 105 mmol/L (98-107); Glucose 71 mg/dL (70-105); Potassium 3.4 mmol/L (3.5-5.1); Sodium 136 mmol/L (136-145)
[2020-05-25 07:52] VITALS: BP 119/82; TEMP 98.4
[2020-05-25] MEDS: Thiamine 100 MG TAB PO SCH (08:37)
[2020-05-25] MEDS: Calcium Carbonate 600 MG + Vit D TAB PO SCH ×2 (08:37→17:41)
[2020-05-25] MEDS: pyridOXINE 50 MG (B6) TAB PO SCH (08:37)
[2020-05-25] MEDS: Folic Acid 1 MG TAB PO SCH (08:37)
[2020-05-25] MEDS: Multivit, Therapeutic 1 TAB PO SCH (08:37)
== END 2020-05-25 18:25 | disposition home or self-care (01) | DRG 682 ==
LOC: ERS 18:05 → ONC 19:23
PROVIDERS: ADMIT Internal Medicine; ATTEND Internal Medicine
DX: N17.9 Acute kidney failure, unspecified (principal); E43 Unspecified severe protein-calorie malnutrition; E87.1 Hypo-osmolality and hyponatremia; Z20.822 Contact with and (suspected) exposure to COVID-19; E87.2 Acidosis; N20.0 Calculus of kidney; T73.0XXA Starvation, initial encounter; K90.0 Celiac disease; F31.9 Bipolar disorder, unspecified; F41.9 Anxiety disorder, unspecified; F17.210 Nicotine dependence, cigarettes, uncomplicated; E53.8 Deficiency of other specified B group vitamins; E87.6 Hypokalemia; D72.829 Elevated white blood cell count, unspecified; Z68.1 Body mass index [BMI] 19.9 or less, adult; Z79.899 Other long term (current) drug therapy
CPT/HCPCS: 36415; 80048; 80053; 82550; 82607; 82746; 83605; 83735; 84100; 85025; 86140; 96365; 96375; J0696; J3010; S0028

== ENCOUNTER 2023-08-30 14:58 | Inpatient (IN) | payer SELFPAY ==
[2023-08-30] MEDS ORDERED: Ondansetron ODT 4 MG TAB PO PRN (17:11)
[2023-08-30] MEDS ORDERED: Glycerin Adult Supp. (12 ct jar) PR PRN (17:12)
[2023-08-30] MEDS ORDERED: Polyethylene Glycol 3350 17 GM Packet PO PRN (17:12)
[2023-08-30] MEDS: Sodium Chloride 0.9% 1,000 ML IV SCH (18:15)
[2023-08-30] MEDS: Acetaminophen 325 MG TAB PO SCH (18:15)
[2023-08-30] MEDS: cefTRIAXone\\ROCEPHIN 2 GM in Sodium Chloride 0.9% 100 ML IVPB SCH (18:16)
[2023-08-30 19:41] LABS: CK (CPK) 723 U/L (29-168); Phosphorus 2.5 mg/dL (2.3-4.7)
[2023-08-30 21:07] LABS: Bilirubin Negative (Negative); Blood, Urine Negative (Negative); CAUTI Indications for Culture Dysuria,urgency,freq; Clarity Clear (Clear); Glucose, Urine (Dipstick) Normal (Negative); Ketone, Urine Negative (Negative); Leukocyte 500 Leu/uL (Negative); Nitrite Negative (Negative); Protein, Urine (Dipstick) 30 mg/dL (Neg-Trace); RBC/HPF 0-3 HPF (0-3); Specific Gravity, Urine 1.024 (1.002-1.036); Urobilinogen Normal mg/dL (Less than 2); WBC/HPF 21-50 HPF (0-3); pH, Urine 6.5 (5.0-9.0)
[2023-08-30 21:09] LABS: Bacteria/HPF 1+ HPF (None Seen)
[2023-08-30 21:11] LABS: Urine Culture Reflex Yes Yes
[2023-08-31 05:13] LABS: #Basophils Less than 0.03 10x3/uL (0.0-0.2); #Eosinphils Less than 0.03 10x3/uL (0.0-0.7); %Basophils 0.1 % (0.0-1.0); %Eosinophils 0.1 % (0.0-10.0); %Lymphocytes 16.7 % (21.0-51.0); %Monocytes 4.3 % (0.0-10.0); %Neutrophils 78.5 % (42.0-75.0); Hematocrit 34.2 % (36.0-47.0); Hemoglobin 11.5 g/dL (12.0-16.0); Mean Corpuscular HGB CONC 33.6 g/dL (32.0-36.0); Mean Corpuscular Hemoglobin 30.4 pg (27.0-31.0); Mean Corpuscular Volume 90.5 fL (78.0-98.0); Mean Platelet Volume 10.8 fL (7.4-10.4); Platelet Count 250 10x3/uL (130-400); RBC Distribution Width 14.3 % (11.5-14.5); Red Blood Cell (RBC) Count 3.78 mill/uL (4.20-5.40)
[2023-08-31 05:34] LABS: Phosphorus 2.4 mg/dL (2.3-4.7)
[2023-08-31 05:39] LABS: Anion Gap 11 mmol/L (10-20); BUN (Urea Nitrogen) 14 mg/dL (7.0-18.7); Calc. Creatinine Clearance 77 mL/min (70-130); Calcium 9.1 mg/dL (7.8-10.44); Carbon Dioxide 22 mmol/L (22-29); Chloride 109 mmol/L (98-107); Estimated GFR 98; Glucose 98 mg/dL (70-105); Sodium 139 mmol/L (136-145)
[2023-08-31] MEDS: Lorazepam 2 MG/ML VIAL SLOW IVP PRN (06:35)
[2023-08-31] MEDS: Ondansetron PF 4 MG/2 ML Vial IVP PRN (06:35)
[2023-08-31] MEDS: Enoxaparin 30 MG (0.3 mL) SYRINGE SC SCH (07:33)
[2023-08-31] MEDS: HYDROcodone/Acetaminophen 7.5/325 mg Tablet PO PRN (07:37)
[2023-08-31] MEDS ORDERED: Enoxaparin 40 MG (0.4 mL) SYRINGE SC SCH (09:00)
[2023-08-31 13:49] VITALS: BMI 18.9
[2023-08-31] MEDS: Potassium Chloride 20 MEQ TAB PO SCH (22:48)
[2023-09-01 05:30] LABS: #Basophils Less than 0.03 10x3/uL (0.0-0.2); #Eosinphils Less than 0.03 10x3/uL (0.0-0.7); %Basophils 0.2 % (0.0-1.0); %Eosinophils 0.2 % (0.0-10.0); %Lymphocytes 38.1 % (21.0-51.0); %Monocytes 5.5 % (0.0-10.0); %Neutrophils 55.9 % (42.0-75.0); Hematocrit 32.8 % (36.0-47.0); Hemoglobin 10.9 g/dL (12.0-16.0); Mean Corpuscular HGB CONC 33.2 g/dL (32.0-36.0); Mean Corpuscular Hemoglobin 30.9 pg (27.0-31.0); Mean Corpuscular Volume 92.9 fL (78.0-98.0); Mean Platelet Volume 11.1 fL (7.4-10.4); Platelet Count 208 10x3/uL (130-400); Red Blood Cell (RBC) Count 3.53 mill/uL (4.20-5.40)
[2023-09-01 05:59] LABS: Anion Gap 12 mmol/L (10-20); BUN (Urea Nitrogen) 12 mg/dL (7.0-18.7); Calc. Creatinine Clearance 99 mL/min (70-130); Calcium 8.5 mg/dL (7.8-10.44); Carbon Dioxide 22 mmol/L (22-29); Chloride 106 mmol/L (98-107); Estimated GFR 123; Glucose 83 mg/dL (70-105); Potassium 3.3 mmol/L (3.5-5.1); Sodium 137 mmol/L (136-145)
[2023-09-01 06:46] VITALS: BMI 19.3
[2023-09-01] MEDS: traMADol HCl 50 MG TAB PO SCH (06:59)
[2023-09-01] MEDS: Morphine 2 MG/ML VIAL SLOW IVP PRN (10:11)
[2023-09-01] MEDS: Capsaicin 0.025% Cream 60 gm Tube TOP SCH (12:00)
[2023-09-01] MEDS: Multivit, Therapeutic 1 TAB PO SCH (12:00)
[2023-09-01] MEDS: Potassium Chloride 20 MEQ TAB PO SCH (12:00)
[2023-09-01] MEDS: Haloperidol Lactate 5 MG/ML VIAL IM SCH (13:16)
[2023-09-01] MEDS: Pantoprazole 40 MG VIAL IVP SCH (13:17)
[2023-09-02 06:57] LABS: #Basophils 0.03 10x3/uL (0.0-0.2); %Basophils 0.5 % (0.0-1.0); %Eosinophils 0.5 % (0.0-10.0); %Lymphocytes 43.5 % (21.0-51.0); %Monocytes 4.7 % (0.0-10.0); %Neutrophils 50.6 % (42.0-75.0); Hematocrit 32.4 % (36.0-47.0); Hemoglobin 10.9 g/dL (12.0-16.0); Mean Corpuscular HGB CONC 33.6 g/dL (32.0-36.0); Mean Corpuscular Hemoglobin 31.3 pg (27.0-31.0); Mean Corpuscular Volume 93.1 fL (78.0-98.0); Mean Platelet Volume 11.2 fL (7.4-10.4); Platelet Count 203 10x3/uL (130-400); RBC Distribution Width 13.9 % (11.5-14.5); Red Blood Cell (RBC) Count 3.48 mill/uL (4.20-5.40)
[2023-09-02 07:11] LABS: Phosphorus 1.9 mg/dL (2.3-4.7)
[2023-09-02 07:17] LABS: Anion Gap 8 mmol/L (10-20); BUN (Urea Nitrogen) 8 mg/dL (7.0-18.7); Calc. Creatinine Clearance 94 mL/min (70-130); Calcium 8.2 mg/dL (7.8-10.44); Carbon Dioxide 23 mmol/L (22-29); Chloride 109 mmol/L (98-107); Estimated GFR 122; Glucose 89 mg/dL (70-105); Magnesium 1.8 mg/dL (1.6-2.6); Potassium 3.4 mmol/L (3.5-5.1); Sodium 137 mmol/L (136-145)
[2023-09-02] MEDS: Pantoprazole DR 40 MG TAB PO SCH (08:05)
[2023-09-03 05:59] LABS: #Basophils 0.04 10x3/uL (0.0-0.2); %Basophils 0.4 % (0.0-1.0); %Eosinophils 0.7 % (0.0-10.0); %Lymphocytes 34.9 % (21.0-51.0); %Monocytes 4.4 % (0.0-10.0); %Neutrophils 59.5 % (42.0-75.0); Hematocrit 32.4 % (36.0-47.0); Hemoglobin 10.8 g/dL (12.0-16.0); Mean Corpuscular HGB CONC 33.3 g/dL (32.0-36.0); Mean Corpuscular Volume 93.1 fL (78.0-98.0); Mean Platelet Volume 10.9 fL (7.4-10.4); Platelet Count 197 10x3/uL (130-400); RBC Distribution Width 13.6 % (11.5-14.5); Red Blood Cell (RBC) Count 3.48 mill/uL (4.20-5.40)
[2023-09-03 06:20] LABS: Anion Gap 10 mmol/L (10-20); BUN (Urea Nitrogen) 6 mg/dL (7.0-18.7); Calc. Creatinine Clearance 99 mL/min (70-130); Calcium 8.4 mg/dL (7.8-10.44); Carbon Dioxide 22 mmol/L (22-29); Chloride 110 mmol/L (98-107); Estimated GFR 123; Glucose 88 mg/dL (70-105); Magnesium 1.6 mg/dL (1.6-2.6); Potassium 3.8 mmol/L (3.5-5.1); Sodium 138 mmol/L (136-145)
[2023-09-03 06:41] LABS: Phosphorus 2.9 mg/dL (2.3-4.7)
[2023-09-03 12:09] VITALS: BP 158/93; TEMP 98.6
== END 2023-09-03 12:15 | disposition home or self-care (01) | DRG 896 ==
LOC: 2SW 14:58 → INTOOBSV 14:58 → T4-B 08-31 09:43 → OBSVTOIN 08-31 21:42
PROVIDERS: ADMIT Hospitalist; ATTEND Internal Medicine
DX: F12.188 Cannabis abuse with other cannabis-induced disorder (principal); E43 Unspecified severe protein-calorie malnutrition; N17.9 Acute kidney failure, unspecified; N39.0 Urinary tract infection, site not specified; Z68.1 Body mass index [BMI] 19.9 or less, adult; R11.2 Nausea with vomiting, unspecified; F31.9 Bipolar disorder, unspecified; I10 Essential (primary) hypertension; K59.00 Constipation, unspecified; F14.90 Cocaine use, unspecified, uncomplicated; N20.0 Calculus of kidney; D72.829 Elevated white blood cell count, unspecified; R63.0 Anorexia; E87.6 Hypokalemia; Z90.89 Acquired absence of other organs
CPT/HCPCS: 36415; 80048; 81001; 83735; 84100; 85025; 87086; 96372; 96374; 96375; 96376; C9113; G0378; J0696; J1630; J1650; J2060; J2272; J2405; J3490; J7050

== ENCOUNTER 2023-09-08 12:13 | Inpatient (IN) | payer SELFPAY ==
[2023-09-08 13:33] LABS: Hematocrit 45.1 % (36.0-47.0); Hemoglobin 15.9 g/dL (12.0-16.0); Mean Corpuscular HGB CONC 35.3 g/dL (32.0-36.0); Mean Corpuscular Hemoglobin 30.3 pg (27.0-31.0); Mean Corpuscular Volume 85.9 fL (78.0-98.0); Mean Platelet Volume 10.5 fL (7.4-10.4); Platelet Count 470 10x3/uL (130-400); RBC Distribution Width 13.8 % (11.5-14.5); Red Blood Cell (RBC) Count 5.25 mill/uL (4.20-5.40)
[2023-09-08 14:06] LABS: Eosinophils 1 % (0-10); Lymphocytes 10 % (21-51); Monocytes 5 % (0-10); Neutrophil 84 % (42-75)
[2023-09-08 14:08] LABS: RBC Morphology Within Normal Limits
[2023-09-08 14:09] LABS: Anisocytosis SLIGHT = 6-15 cells (100X) (0-5/hpf); Plasma Cells 0 % (0-0); Platelet Adequacy Comment Appears Adequate; Total Cell Count 100
[2023-09-08 14:11] LABS: ALT (SGPT) 28 U/L (8-55); AST (SGOT) 25 U/L (5-34); Albumin 5.1 g/dL (3.5-5.0); Alkaline Phosphatase 49 U/L (40-110); Anion Gap 25 mmol/L (10-20); BUN (Urea Nitrogen) 41 mg/dL (7.0-18.7); Bilirubin, Total 0.5 mg/dL (0.2-1.2); Calc. Creatinine Clearance 0 mL/min (70-130); Calcium 11.3 mg/dL (7.8-10.44); Carbon Dioxide 13 mmol/L (22-29); Chloride 97 mmol/L (98-107); Estimated GFR 11; Globulin 3.7 g/dL (2.4-3.5); Glucose 76 mg/dL (70-105); Potassium 4.6 mmol/L (3.5-5.1); Protein, Total 8.8 g/dL (6.0-8.3); Sodium 130 mmol/L (136-145)
[2023-09-08] MEDS ORDERED: Lorazepam 2 MG/ML VIAL ONE (14:15)
[2023-09-08] MEDS ORDERED: Ketorolac Tromethamine 30 MG (1 mL) VIAL ONE (14:16)
[2023-09-08] MEDS ORDERED: Morphine 2 MG/ML VIAL ONE (15:04)
[2023-09-08] MEDS ORDERED: Sodium Chloride 0.9% 1,000 ML IV SCH (15:15)
[2023-09-08 15:29] LABS: Acetaminophen Less than 10 mcg/mL (10.0-30.0); Alcohol Less than 10.0 mg/dL (Less than 10); Salicylate Less than 8.0 mg/dL (15.0-30.0)
[2023-09-08 15:31] LABS: Phosphorus 10.5 mg/dL (2.3-4.7)
[2023-09-08] MEDS ORDERED: Sodium Chloride 0.9% 100 ML ONE (15:46)
[2023-09-08] MEDS ORDERED: cefTRIAXone (ROCEPHIN) 2 GM VIAL ONE (15:46)
[2023-09-08] MEDS ORDERED: Vancomycin 1 GM/200 ML (FROZEN) BAG ONE (16:20)
[2023-09-08] MEDS: Sodium Bicarbonate 150 mEq in Dextrose 5% IV SCH (17:30)
[2023-09-08] MEDS: Ondansetron PF 4 MG/2 ML Vial IVP PRN (17:30)
[2023-09-08] MEDS: Morphine 2 MG/ML VIAL SLOW IVP SCH (17:30)
[2023-09-08] MEDS: Acetaminophen 325 MG TAB PO SCH (17:37)
[2023-09-08 18:20] LABS: Lactic Acid 1.6 mmol/L (0.5-2.2)
[2023-09-08 18:43] VITALS: BMI 18.3
[2023-09-08] MEDS: Famotidine 20 MG TAB PO SCH (19:43)
[2023-09-08] MEDS: hydrOXYzine 25 MG TAB PO SCH (19:43)
[2023-09-08 20:29] LABS: Bacteria/HPF 1+ HPF (None Seen); Bilirubin Negative (Negative); Blood, Urine 3+ (Negative); CAUTI Indications for Culture Fever or rigors; Clarity Turbid (Clear); Glucose, Urine (Dipstick) Normal (Negative); Ketone, Urine Negative (Negative); Leukocyte 250 Leu/uL (Negative); Nitrite Negative (Negative); Protein, Urine (Dipstick) 200 mg/dL (Neg-Trace); Specific Gravity, Urine 1.017 (1.002-1.036); Squamous Epithelial 0-3 HPF (0-3); Urobilinogen Normal mg/dL (Less than 2); WBC/HPF 21-50 HPF (0-3); pH, Urine 5.5 (5.0-9.0)
[2023-09-08 20:30] LABS: Urine Culture Reflex Yes Yes
[2023-09-08] MEDS: Morphine 2 MG/ML VIAL SLOW IVP PRN (21:24)
[2023-09-08] MEDS: Melatonin 3 MG TAB PO PRN (21:59)
[2023-09-09 04:44] LABS: #Basophils 0.05 10x3/uL (0.0-0.2); %Basophils 0.4 % (0.0-1.0); %Eosinophils 0.3 % (0.0-10.0); %Lymphocytes 19.7 % (21.0-51.0); %Monocytes 7.8 % (0.0-10.0); %Neutrophils 71.5 % (42.0-75.0); Hemoglobin 12.2 g/dL (12.0-16.0); Mean Corpuscular HGB CONC 35.9 g/dL (32.0-36.0); Mean Corpuscular Hemoglobin 30.5 pg (27.0-31.0); Mean Platelet Volume 10.5 fL (7.4-10.4); Platelet Count 295 10x3/uL (130-400); RBC Distribution Width 13.4 % (11.5-14.5)
[2023-09-09 04:53] LABS: ALT (SGPT) 20 U/L (8-55); AST (SGOT) 25 U/L (5-34); Albumin 3.8 g/dL (3.5-5.0); Alkaline Phosphatase 38 U/L (40-110); Anion Gap 16 mmol/L (10-20); BUN (Urea Nitrogen) 40 mg/dL (7.0-18.7); Bilirubin, Total 0.4 mg/dL (0.2-1.2); Calc. Creatinine Clearance 26 mL/min (70-130); Calcium 8.8 mg/dL (7.8-10.44); Carbon Dioxide 24 mmol/L (22-29); Chloride 91 mmol/L (98-107); Estimated GFR 26; Globulin 2.4 g/dL (2.4-3.5); Glucose 116 mg/dL (70-105); Magnesium 2.2 mg/dL (1.6-2.6); Potassium 2.7 mmol/L (3.5-5.1); Protein, Total 6.2 g/dL (6.0-8.3); Sodium 128 mmol/L (136-145)
[2023-09-09] MEDS: Enoxaparin 30 MG (0.3 mL) SYRINGE SC SCH (08:08)
[2023-09-09] MEDS: Sodium Chloride 0.9% 1,000 ML IV SCH (10:01)
[2023-09-09] MEDS: Potassium Chloride 20 MEQ TAB PO SCH (10:01)
[2023-09-09 10:43] VITALS: BMI 18.3
[2023-09-09 15:06] LABS: Phosphorus 2.3 mg/dL (2.3-4.7)
[2023-09-09] MEDS: Potassium Phosphate 9 MMOL in Sodium Chloride 0.9% 100 ML IVPB SCH (18:13)
[2023-09-09] MEDS: Famotidine 20 MG TAB PO SCH (21:11)
[2023-09-09] MEDS: tiZANidine HCl 4 MG TAB PO PRN (21:11)
[2023-09-09] MEDS: Nicotine 14 MG PATCH TD SCH (23:00)
[2023-09-10 10:17] LABS: Phosphorus 1.6 mg/dL (2.3-4.7)
[2023-09-10] MEDS: Potassium Phosphate 15 MMOL in Sodium Chloride 0.9% 250 ML 250 ML IVPB SCH (12:28)
[2023-09-10 17:12] LABS: Anion Gap 11 mmol/L (10-20); BUN (Urea Nitrogen) 20 mg/dL (7.0-18.7); Calc. Creatinine Clearance 85 mL/min (70-130); Calcium 8.9 mg/dL (7.8-10.44); Carbon Dioxide 23 mmol/L (22-29); Chloride 104 mmol/L (98-107); Estimated GFR 111; Glucose 87 mg/dL (70-105); Potassium 4.1 mmol/L (3.5-5.1); Sodium 134 mmol/L (136-145)
[2023-09-10] MEDS: hydrOXYzine 25 MG TAB PO SCH (22:08)
[2023-09-10] MEDS: Transdermal Patch Removal TOP SCH (22:45)
[2023-09-11 07:39] LABS: Anion Gap 8 mmol/L (10-20); BUN (Urea Nitrogen) 14 mg/dL (7.0-18.7); Calc. Creatinine Clearance 86 mL/min (70-130); Calcium 8.5 mg/dL (7.8-10.44); Carbon Dioxide 23 mmol/L (22-29); Chloride 109 mmol/L (98-107); Estimated GFR 113; Glucose 78 mg/dL (70-105); Phosphorus 2.4 mg/dL (2.3-4.7); Potassium 4.1 mmol/L (3.5-5.1); Sodium 136 mmol/L (136-145)
[2023-09-11 08:58] VITALS: BP 109/69; TEMP 97.8
== END 2023-09-11 08:43 | disposition left against medical advice (07) | DRG 682 ==
LOC: ERS 12:13 → SUATTDRO 12:13 → T4-B 15:04
PROVIDERS: ADMIT Internal Medicine; ATTEND Family Medicine
DX: N17.9 Acute kidney failure, unspecified (principal); E43 Unspecified severe protein-calorie malnutrition; E87.0 Hyperosmolality and hypernatremia; E87.20 Acidosis, unspecified; Z68.1 Body mass index [BMI] 19.9 or less, adult; F50.00 Anorexia nervosa, unspecified; E87.6 Hypokalemia; E83.39 Other disorders of phosphorus metabolism; E83.52 Hypercalcemia; N18.30 Chronic kidney disease, stage 3 unspecified; D72.829 Elevated white blood cell count, unspecified; D63.1 Anemia in chronic kidney disease; Z71.3 Dietary counseling and surveillance
CPT/HCPCS: 36415; 36416; 76770; 80048; 80053; 80307; 81001; 82306; 83605; 83735; 83970; 84100; 85025; 87040; 87086; 93005; 96361; 96365; 96374; 96375; J0696; J1650; J1885; J2060; J2272; J2405; J3370-JW; J3490; J7050; J7070

== ENCOUNTER 2023-11-28 06:11 | Emergency (ER) | payer MEDICAID ==
[2023-11-28 06:43] LABS: #Basophils 0.05 10x3/uL (0.0-0.2); %Basophils 0.3 % (0.0-1.0); %Eosinophils 0.4 % (0.0-10.0); %Monocytes 4.6 % (0.0-10.0); %Neutrophils 82.4 % (42.0-75.0); Hematocrit 39.6 % (36.0-47.0); Hemoglobin 14.2 g/dL (12.0-16.0); Mean Corpuscular HGB CONC 35.9 g/dL (32.0-36.0); Mean Corpuscular Hemoglobin 32.5 pg (27.0-31.0); Mean Corpuscular Volume 90.6 fL (78.0-98.0); Mean Platelet Volume 10.4 fL (7.4-10.4); Platelet Count 345 10x3/uL (130-400); RBC Distribution Width 11.6 % (11.5-14.5); Red Blood Cell (RBC) Count 4.37 mill/uL (4.20-5.40)
[2023-11-28 07:11] LABS: BHCG - Serum POSITIVE (NEGATIVE); Pregs Control Background? CLEAR/WHITE (CLR/WHITE); Pregs Control Bar Appear? YES (CONTROL BAR)
[2023-11-28 07:12] LABS: Acetaminophen Less than 10 mcg/mL (Less than 10); Alcohol Less than 10.0 mg/dL (Less than 10); Salicylate Less than 8.0 mg/dL (Less than 8.0)
[2023-11-28 07:15] LABS: ALT (SGPT) 10 U/L (8-55); AST (SGOT) 16 U/L (5-34); Albumin 5.3 g/dL (3.5-5.0); Alkaline Phosphatase 54 U/L (40-110); Anion Gap 20 mmol/L (10-20); BUN (Urea Nitrogen) 19 mg/dL (7.0-18.7); Bilirubin, Total 0.7 mg/dL (0.2-1.2); CK (CPK) 74 U/L (29-168); Calc. Creatinine Clearance 0 mL/min (70-130); Calcium 11.6 mg/dL (7.8-10.44); Carbon Dioxide 17 mmol/L (22-29); Chloride 100 mmol/L (98-107); Estimated GFR 72; Glucose 116 mg/dL (70-105); Lipase 14 U/L (8-78); Potassium 3.5 mmol/L (3.5-5.1); Protein, Total 9.3 g/dL (6.0-8.3); Sodium 133 mmol/L (136-145)
[2023-11-28] MEDS ORDERED: Ondansetron PF 4 MG/2 ML Vial ONE (07:17)
[2023-11-28] MEDS ORDERED: diphenhydrAMINE 50 MG/ML VIAL ONE (07:24)
[2023-11-28] MEDS ORDERED: Metoclopramide HCl 10 MG (2 mL) VIAL ONE (07:24)
[2023-11-28] MEDS ORDERED: Haloperidol Lactate 5 MG/ML VIAL ONE (07:24)
[2023-11-28] MEDS ORDERED: Lorazepam 2 MG/ML VIAL ONE (08:55)
[2023-11-28 13:28] LABS: Bacteria/HPF None Seen HPF (None Seen); Bilirubin Negative (Negative); Blood, Urine Trace (Negative); CAUTI Indications for Culture Dysuria,urgency,freq; Clarity Clear (Clear); Glucose, Urine (Dipstick) 200 mg/dL (Negative); Ketone, Urine 40 mg/dL (Negative); Leukocyte 25 Leu/uL (Negative); Nitrite Negative (Negative); Protein, Urine (Dipstick) 70 mg/dL (Neg-Trace); RBC/HPF 0-3 HPF (0-3); Specific Gravity, Urine 1.024 (1.002-1.036); Squamous Epithelial 0-3 HPF (0-3); Urobilinogen Normal mg/dL (Less than 2)
[2023-11-28 13:30] LABS: Urine Culture Reflex No No
[2023-11-28 13:33] LABS: Amphetamine Not Detected (NotDetected); Barbiturates Screen Not Detected (NotDetected); Benzodiazepine Screen Detected (NotDetected); Cocaine Metabolite Screen Not Detected (NotDetected); Methadone Not Detected (NotDetected); Methamphetamine Not Detected (NotDetected); Opiate Screen Not Detected (NotDetected); Oxycodone Screen Not Detected (NotDetected); Phencyclidine (PCP) Not Detected (NotDetected); THC/Cannabinoid Screen Detected (NotDetected); Tricyclic Screen Not Detected (NotDetected)
[2023-11-28] MEDS ORDERED: Promethazine HCl 12.5 MG in Sodium Chloride 0.9% 50 ML IVPB PRN (16:29)
[2023-11-28] MEDS ORDERED: Metoclopramide HCl 10 MG (2 mL) VIAL IVP PRN (16:29)
[2023-11-28] MEDS ORDERED: Lactated Ringer's 1,000 ML IV SCH (16:30)
[2023-11-28] MEDS ORDERED: Ondansetron PF 4 MG/2 ML Vial IVP SCH (18:00)
== END 2023-11-28 15:29 | disposition short-term general hospital (02) ==
LOC: ERS 06:11
DX: O21.0 Mild hyperemesis gravidarum (principal); O99.331 Smoking (tobacco) complicating pregnancy, first trimester; F17.210 Nicotine dependence, cigarettes, uncomplicated; O99.891 Other specified diseases and conditions complicating pregnancy; R41.82 Altered mental status, unspecified; Z3A.12 12 weeks gestation of pregnancy
CPT/HCPCS: 36415; 51701; 76700; 76801; 76856; 80053; 80306; 80307; 81001; 82550; 83690; 84443; 84702; 84703; 85025; 86900; 86901; 96361; 96365; 96375; J1200; J1630; J2060; J2405; J2765

== ENCOUNTER 2024-03-05 21:12 | Inpatient (IN) | payer OTHER ==
[2024-03-05 21:44] LABS: Bilirubin Negative (Negative); Blood, Urine 1+ (Negative); CAUTI Indications for Culture Pelvic or flank pain; Clarity Extra Turbid (Clear); Glucose, Urine (Dipstick) Normal (Negative); Ketone, Urine Trace mg/dL (Negative); Leukocyte 500 Leu/uL (Negative); Nitrite Negative (Negative); Protein, Urine (Dipstick) 70 mg/dL (Neg-Trace); Specific Gravity, Urine 1.029 (1.002-1.036); Squamous Epithelial 21-50 HPF (0-3); Urobilinogen 6 mg/dL (Less than 2); WBC/HPF 21-50 HPF (0-3)
[2024-03-05 21:45] LABS: Bacteria/HPF Rare-Few HPF (None Seen)
[2024-03-05 21:46] LABS: Urine Culture Reflex Yes Yes
[2024-03-05] MEDS ORDERED: Ondansetron PF 4 MG/2 ML Vial ONE (21:53)
[2024-03-05] MEDS ORDERED: Morphine 4 MG/ML VIAL ONE (21:53)
[2024-03-05] MEDS ORDERED: Ketorolac Tromethamine 30 MG (1 mL) VIAL ONE (21:55)
[2024-03-05 21:57] LABS: #Basophils 0.03 10x3/uL (0.0-0.2); #Eosinophils Less than 0.03 10x3/uL (0.0-0.7); %Basophils 0.2 % (0.0-1.0); %Eosinophils 0.1 % (0.0-10.0); %Monocytes 4.1 % (0.0-10.0); %Neutrophils 84.7 % (42.0-75.0); Hematocrit 33.1 % (36.0-47.0); Mean Corpuscular HGB CONC 33.2 g/dL (32.0-36.0); Mean Corpuscular Hemoglobin 30.4 pg (27.0-31.0); Mean Corpuscular Volume 91.4 fL (78.0-98.0); Mean Platelet Volume 8.9 fL (7.4-10.4); Platelet Count 734 10x3/uL (130-400); RBC Distribution Width 13.2 % (11.5-14.5); Red Blood Cell (RBC) Count 3.62 mill/uL (4.20-5.40)
[2024-03-05 22:02] LABS: BHCG - Serum POSITIVE (NEGATIVE); Pregs Control Background? CLEAR/WHITE (CLR/WHITE); Pregs Control Bar Appear? YES (CONTROL BAR)
[2024-03-05 22:08] LABS: ALT (SGPT) 8 U/L (8-55); AST (SGOT) 13 U/L (5-34); Albumin 3.9 g/dL (3.5-5.0); Alkaline Phosphatase 88 U/L (40-110); Anion Gap 23 mmol/L (10-20); BUN (Urea Nitrogen) 19 mg/dL (7.0-18.7); Bilirubin, Total 0.1 mg/dL (0.2-1.2); Calc. Creatinine Clearance 0 mL/min (70-130); Calcium 11.1 mg/dL (7.8-10.44); Carbon Dioxide 24 mmol/L (22-29); Chloride 101 mmol/L (98-107); Estimated GFR 102; Glucose 142 mg/dL (70-105); Lipase 10 U/L (8-78); Potassium 3.1 mmol/L (3.5-5.1); Protein, Total 8.9 g/dL (6.0-8.3); Sodium 145 mmol/L (136-145)
[2024-03-05] MEDS ORDERED: Sodium Chloride 0.9% 100 ML ONE (23:02)
[2024-03-05] MEDS ORDERED: cefTRIAXone (ROCEPHIN) 2 GM VIAL ONE (23:02)
[2024-03-05] MEDS ORDERED: Ondansetron ODT 4 MG TAB PO PRN (23:07)
[2024-03-05] MEDS ORDERED: Ipratropium/Albuterol 3 ML NEB NEB PRN (23:09)
[2024-03-05 23:56] LABS: Amphetamine Detected (NotDetected); Barbiturates Screen Not Detected (NotDetected); Benzodiazepine Screen Detected (NotDetected); Cocaine Metabolite Screen Not Detected (NotDetected); Methadone Not Detected (NotDetected); Methamphetamine Detected (NotDetected); Opiate Screen Not Detected (NotDetected); Oxycodone Screen Not Detected (NotDetected); Phencyclidine (PCP) Not Detected (NotDetected); THC/Cannabinoid Screen Detected (NotDetected); Tricyclic Screen Detected (NotDetected)
[2024-03-06] MEDS: Potassium Chloride 20 MEQ TAB PO SCH (00:13)
[2024-03-06] MEDS: Sodium Chloride 0.9% 1,000 ML IV SCH (00:13)
[2024-03-06 00:24] VITALS: BMI 18.6
[2024-03-06] MEDS ORDERED: Guaifenesin DM 100-10/5 ML UDCUP PO PRN (00:44)
[2024-03-06] MEDS: Promethazine HCl 12.5 MG in Sodium Chloride 0.9% 50 ML IVPB SCH (01:26)
[2024-03-06 01:42] LABS: Legionella Urinary Ag Negative (Negative); Strep pneumo Urine Ag NEGATIVE (NEGATIVE)
[2024-03-06 01:47] LABS: Lactic Acid 1.65 mmol/L (0.5-2.2)
[2024-03-06] MEDS: Metoclopramide HCl 10 MG (2 mL) VIAL IVP SCH (02:59)
[2024-03-06] MEDS: Ketorolac Tromethamine 30 MG (1 mL) VIAL IVP SCH (02:59)
[2024-03-06] MEDS: Potassium Chloride 20 MEQ in Premix 1 BAG IVPB SCH (03:00)
[2024-03-06] MEDS ORDERED: Ketorolac Tromethamine 30 MG (1 mL) VIAL IVP SCH (03:30)
[2024-03-06] MEDS: Dicyclomine 10 MG CAP PO SCH (04:31)
[2024-03-06] MEDS: Ondansetron PF 4 MG/2 ML Vial IVP PRN (06:05)
[2024-03-06] MEDS: Morphine 2 MG/ML VIAL SLOW IVP PRN (06:05)
[2024-03-06] MEDS: Pantoprazole 40 MG VIAL IVP SCH (06:05)
[2024-03-06 06:45] LABS: #Basophils Less than 0.03 10x3/uL (0.0-0.2); #Eosinophils Less than 0.03 10x3/uL (0.0-0.7); %Basophils 0.1 % (0.0-1.0); %Lymphocytes 9.5 % (21.0-51.0); %Monocytes 4.4 % (0.0-10.0); %Neutrophils 85.4 % (42.0-75.0); Hematocrit 28.2 % (36.0-47.0); Hemoglobin 9.1 g/dL (12.0-16.0); Mean Corpuscular HGB CONC 32.3 g/dL (32.0-36.0); Mean Corpuscular Hemoglobin 30.2 pg (27.0-31.0); Mean Corpuscular Volume 93.7 fL (78.0-98.0); Mean Platelet Volume 9.1 fL (7.4-10.4); Platelet Count 650 10x3/uL (130-400); RBC Distribution Width 13.3 % (11.5-14.5); Red Blood Cell (RBC) Count 3.01 mill/uL (4.20-5.40)
[2024-03-06 07:36] LABS: Anion Gap 18 mmol/L (10-20); BUN (Urea Nitrogen) 21 mg/dL (7.0-18.7); Calc. Creatinine Clearance 103 mL/min (70-130); Calcium 9.2 mg/dL (7.8-10.44); Carbon Dioxide 25 mmol/L (22-29); Chloride 105 mmol/L (98-107); Estimated GFR 125; Glucose 136 mg/dL (70-105); Potassium 3.1 mmol/L (3.5-5.1); Sodium 145 mmol/L (136-145)
[2024-03-06] MEDS: FLU (Fluarix Triv) TS24-25(6MOS UP)/PF 45 MCG/0.5 ML Syringe IM ONE (08:58)
[2024-03-06] MEDS: Labetalol HCl 100 MG TAB PO SCH (08:58)
[2024-03-06] MEDS: DULoxetine 30 MG CAP PO SCH (16:12)
[2024-03-06] MEDS: QUEtiapine 25 MG TAB PO SCH (19:05)
[2024-03-06] MEDS: Lorazepam 0.5 MG TAB PO SCH (21:57)
[2024-03-06] MEDS: cefTRIAXone\\ROCEPHIN 1 GM in Sodium Chloride 0.9% 100 ML IVPB SCH (22:27)
[2024-03-06] MEDS: Mirtazapine 30 MG TAB PO SCH (22:28)
[2024-03-06] MEDS: Ketorolac Tromethamine 30 MG (1 mL) VIAL IVP PRN (23:09)
[2024-03-07] MEDS: Dicyclomine 10 MG CAP PO SCH (02:14)
[2024-03-07 05:46] LABS: #Basophils Less than 0.03 10x3/uL (0.0-0.2); #Eosinophils Less than 0.03 10x3/uL (0.0-0.7); %Basophils 0.2 % (0.0-1.0); %Lymphocytes 16.9 % (21.0-51.0); %Monocytes 3.7 % (0.0-10.0); %Neutrophils 78.6 % (42.0-75.0); Hematocrit 27.7 % (36.0-47.0); Hemoglobin 9.1 g/dL (12.0-16.0); Mean Corpuscular HGB CONC 32.9 g/dL (32.0-36.0); Mean Corpuscular Hemoglobin 30.1 pg (27.0-31.0); Mean Corpuscular Volume 91.7 fL (78.0-98.0); Mean Platelet Volume 9.1 fL (7.4-10.4); Platelet Count 536 10x3/uL (130-400); RBC Distribution Width 13.4 % (11.5-14.5); Red Blood Cell (RBC) Count 3.02 mill/uL (4.20-5.40)
[2024-03-07 06:12] LABS: Anion Gap 14 mmol/L (10-20); BUN (Urea Nitrogen) 15 mg/dL (7.0-18.7); Calc. Creatinine Clearance 123 mL/min (70-130); Calcium 8.9 mg/dL (7.8-10.44); Carbon Dioxide 30 mmol/L (22-29); Chloride 101 mmol/L (98-107); Estimated GFR 131; Glucose 115 mg/dL (70-105); Magnesium 1.9 mg/dL (1.6-2.6); Potassium 2.7 mmol/L (3.5-5.1); Sodium 142 mmol/L (136-145)
[2024-03-07 07:26] VITALS: TEMP 98
[2024-03-07] MEDS ORDERED: Electrolyte Replacement Protocol 1 EACH FS SCH (08:12)
[2024-03-07] MEDS: Pantoprazole 40 MG VIAL IVP SCH (08:49)
[2024-03-07] MEDS: DULoxetine 30 MG CAP PO SCH (08:49)
[2024-03-07] MEDS: Magnesium 2 GM/50 ML(in water) 2 GM in Premix 1 BAG IVPB SCH (09:59)
[2024-03-07] MEDS: Potassium Chloride 20 MEQ TAB PO SCH (10:24)
[2024-03-07 11:28] VITALS: BP 107/72
[2024-03-07] MEDS: Potassium Chloride 20 MEQ in Premix 1 BAG IVPB SCH (11:29)
[2024-03-07 17:23] LABS: Potassium 3.6 mmol/L (3.5-5.1)
[2024-03-07] MEDS: Acetaminophen 325 MG TAB PO PRN (17:31)
[2024-03-07] MEDS ORDERED: Mirtazapine 30 MG TAB PO SCH (21:00)
== END 2024-03-07 18:37 | disposition home or self-care (01) | DRG 391 ==
LOC: ERS 21:12 → T4-A 23:08 → OBSVTOIN 03-06 15:29
PROVIDERS: ADMIT Internal Medicine; ATTEND Internal Medicine
DX: R11.2 Nausea with vomiting, unspecified (principal); J18.9 Pneumonia, unspecified organism; F12.90 Cannabis use, unspecified, uncomplicated; Z79.899 Other long term (current) drug therapy; F31.9 Bipolar disorder, unspecified; Z90.89 Acquired absence of other organs; Z83.3 Family history of diabetes mellitus; E87.6 Hypokalemia
CPT/HCPCS: 36415; 71045; 80048; 80053; 80306; 81001; 83605; 83690; 83735; 84702; 84703; 85025; 87040; 87086; 87428; 87449; 87899; 96361; 96365; 96374; 96375; 96376; G0378; J0696; J1885; J2270; J2272; J2405; J2470; J2550; J2765; J3475; J3480; J7030